=== PATIENT | female | born 1975 | race Caucasian/White ===

== ENCOUNTER → 2016-12-28 | Outpatient (CLI) | payer BC, MEDICARE ==
[2016-12-28 10:04] LABS: CHLORIDE,CL 95 mmol/L (98-110); SODIUM,NA 136 mmol/L (136-146)
--- NOTE | 2017-01-03 01:54 | BHI ---
SERVICE DATE: 01/02/2017 PATIENT #: [id number] #: NOT DICTATED IDENTIFICATION: This is a 41-year-old female, who presents to the clinic today for evaluation. She was seen with her . She is referred to me by Rossana Monae. CHIEF COMPLAINT: Insomnia, anxiety, and depression. CURRENT MEDICATIONS: Zoloft 50 mg a day, trazodone 50 mg at bedtime, Ambien 10 mg at bedtime p.r.n. ALLERGIES: She has no known allergies to medications. HISTORY OF PRESENT ILLNESS: Milvia states "I feel empty." She started the Zoloft about a week ago and she just went up to 50 mg, she has been taking it at night. She has been having a lot of trouble sleeping at night. She is having difficulty falling asleep, frequent awakenings. She is maybe getting 3 hours of sleep at night and she said she has had sleep problems for many years. This is nothing new. She also states that she has had depression her whole life. She denies suicidal or homicidal ideation. Symptoms she significantly endorses are poor appetite, trouble sleeping, no energy, trouble concentrating, sadness, less enjoyment of life, feels like a failure, cries more than usual, loss of interest, disappointed in herself, trouble catching her breath, palpitations, shaking, trembling, cold sweats, numbness or tingling, chest discomfort, thoughts about dying, fear of being embarrassed or humiliated, hand trembles in the presence of others, anxious, worries a lot, muscle tension, aches and pains, restlessness. As stated earlier, she has had depression for a good part of her life. She has also had some issues with alcohol lately and she is dealing with that. She is trying to not use alcohol as a way of coping. She does have a lot of stressors. She had two deaths in her family. She lost her sister, then she lost her mom that was pretty much most of her family, so she has some grieving issues yet plus guilt. states that she has always had a lot of guilt. It is like she does not feel she is entitled to happiness. PAST PSYCHIATRIC HISTORY: She has never been hospitalized. She has never had a suicide attempt. She has had depression for a long time. The only other medication she has tried besides the Zoloft is Prozac and she felt it made her sick although has been thought it helped her improve. She was prescribed that by her primary care. She has never been to see somebody in Behavioral Health before. Her primary care also prescribed the Zoloft. She is looking for a counselor that she can visit with and she tried [facility], but something with her insurance, so I encouraged her to try a few more places. SOCIAL HISTORY: She was born in [place], [place] raised in [place] by her parents. She had 1 sister who has passed. She graduated from high school and she went to college. 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 She has been 21 years. She has a 22-year-old stepson, a 16-year-old daughter, and an 8-year-old son. 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 They came back to [place] in April of 2016 prior to that, they were here in 2011 and 2012. FAMILY HISTORY: Dad had problems with alcohol. Mom and sister were both very depressed. Mom took Zoloft. CHEMICAL USAGE HISTORY: Last time she used alcohol was 2 weeks ago. She admits that she used it as a coping and to help her get to sleep at night and realizes she does not want to use it for that anymore, so she is working on trying to abstain from that. MEDICAL HISTORY: She has had a fair amount of medical issues. She has had Crohn's disease and she was quite young and she has had a colostomy since 2008. She considers herself to be healthy. She did have a gastric bypass in 2009 and lost I think 150 pounds, and has been able to keep it off. REVIEW OF SYSTEMS: CONSTITUTIONAL: Negative. HEAD, EYES, EARS, NOSE, AND THROAT: Negative. CARDIAC: She has had some racing heart beats when she has had a lot of anxiety lately. RESPIRATORY: Negative. GASTROINTESTINAL: Positive. She has Crohn's disease and she also has colostomy. MUSCULOSKELETAL: Negative. ENDOCRINE: Negative. VITAL SIGNS: Blood pressure is 132/92, heart rate 73, respirations 16, temperature is 98.9, weight is 185.6 pounds, height is 64-1/2 inches. MENTAL STATUS EXAM: Her affect appears euthymic. She is very well groomed. Appears her stated age. Her speech is clear and appropriate. I do not see any delusions, psychosis, pressured speech, or tangential speech. She is alert and oriented x3. Recent and remote memory appear intact. Insight and judgment, I think, are fairly good. Eye contact is good. At least 30 minutes of today's session was spent on doing some cognitive restructuring as well as going over some sleep hygiene issues and the use of naltrexone. DIAGNOSES: [place] I: Depression NOS, F32.9; anxiety F41.8. [place] II: No diagnosis. [place] III: She has Crohn's disease with a colostomy. [place] IV: Stressors, a lot of stress is the of her sister and mom, guilt that she puts on herself, not sleeping at night. [place] V: Current Global Assessment of Functioning score 66. TREATMENT PLAN: She is going to continue with the Zoloft, she just went up to the 50 mg yesterday, so we are going to give it a good 10 more days to 2 weeks to see if there is any miles in it. She will continue the trazodone. When it comes to taking the Ambien at night, we talked about when she takes the medication, she has to go right to bed and to try to do something to keep her thoughts on something such as counting or saying her prayers, anything so she does not start turning thoughts over and over and over, so she is going to do that and see if she can improve her sleep a little bit. Previous to this, she has not been going to bed after she is taking the Ambien and that it has caused a little bit more problems because she will do things and that she has no memory of it. She will continue the trazodone 50 mg as well. I am going to have her journal as well. I think she would gain some good insight into journaling and that would be a big plus for her. I have given her a list of resources to look for a counselor for alcohol. I have also given her some naltrexone 50 mg a day and I discussed how that works and things that she can expect from that. I will see her back in 2 weeks if she has any problems whatsoever before that or if she is not able to find a counselor she will call me. /[id number]
== END ==
LOC: MW.CHFP 09:15
PROVIDERS: ATTEND Nurse Practitioner Family
DX: Z00.00 Encounter for general adult medical examination without abnormal findings (principal); R53.83 Other fatigue; Z98.890 Other specified postprocedural states
CPT/HCPCS: 36415; 80053; 82607; 82728; 84443; 85025

== ENCOUNTER 2017-01-03 18:52 | Emergency (ER) | payer BC, MEDICARE ==
--- NOTE | 2017-01-03 19:26 | EDM.PDOC ---
ED HPI EYE COMPLAINT - General Chief Complaint: Eye Problems Stated Complaint: FALL Time Seen by Provider: 01/03/17 18:56 - History of Present Illness INITIAL COMMENTS - FREE TEXT/NARRATIVE: HISTORY AND PHYSICAL: History of present illness: This is a 41-year-old white female who presents status post fall in which she struck her left face sustaining a large hematoma above her left eye there was reported brief loss of consciousness that was 1-2 seconds per observer she denies any nausea vomiting visual disturbance neck pain other trauma or concern there was no dizziness palpitations chest pain or other concerns associated with this Review of systems: As per history of present illness and below otherwise all systems reviewed and negative. Past medical history: As per history of present illness and as reviewed below otherwise noncontributory. Surgical history: As per history of present illness and as reviewed below otherwise noncontributory. Social history: No reported history of drug or alcohol abuse. Family history: As per history of present illness and as reviewed below otherwise noncontributory. Physical exam: HEENT: Patient to have a fairly large approximately 4 cm hematoma above her left eye there's no globe involvement no crepitation no step off anterior chambers clear, normocephalic, pupils reactive, negative for conjunctival pallor or scleral icterus, mucous membranes moist, throat clear, neck supple, nontender, trachea midline. Lungs: Clear to auscultation, breath sounds equal bilaterally, chest nontender. Heart: S1S2, regular, negative for clicks, rubs, or JVD. Abdomen: Soft, nondistended, nontender. Negative for masses or hepatosplenomegaly. Negative for costovertebral tenderness. Pelvis: Stable nontender. Genitourinary: Deferred. Rectal: Deferred. Extremities: Atraumatic, negative for cords or calf pain. Neurovascular unremarkable. Neuro: Awake, alert, oriented. Cranial nerves II through XII unremarkable. Cerebellum unremarkable. Motor and sensory unremarkable throughout. Exam nonfocal. Diagnostics: CT brain/facial bones Therapeutics: None Impression: #1 observation status post fall #2 blunt head trauma with left facial contusion Definitive disposition and diagnosis as appropriate pending reevaluation and review of above. - Related Data Allergies/ADRs: Allergies No Known Allergies Allergy (Verified 05/30/16 13:15) ED ROS GENERAL - Review of Systems Review Of Systems: ROS reveals no pertinent complaints other than HPI. ED EXAM GENERAL W FULL EYE - Physical Exam Exam: See Below (See dictation) Course - Orders/Labs/Meds Orders: Active Orders 24 hr Category Date Time Status Head wo Cont [CT] Stat Exams 01/03/17 19:04 Ordered Max Facial Sinus wo Cont [CT] Stat Exams 01/03/17 19:04 Ordered Departure - Departure Time of Disposition: 19:25 Disposition: Home, Self-Care 01 Condition: good Clinical Impression: Head injury, Contusion, Concussion, Hematoma Forms: ED Department Discharge Additional Instructions: The following information is given to patients seen in the emergency department who are being discharged to home. This information is to outline your options for follow-up care. We provide all patients seen in our emergency department with a follow-up referral. The need for follow-up, as well as the timing and circumstances, are variable depending upon the specifics of your emergency department visit. If you don't have a primary care physician on staff, we will provide you with a referral. We always advise you to contact your personal physician following an emergency department visit to inform them of the circumstance of the visit and for follow-up with them and/or the need for any referrals to a consulting specialist. The emergency department will also refer you to a specialist when appropriate. This referral assures that you have the opportunity for followup care with a specialist. All of these measure are taken in an effort to provide you with optimal care, which includes your followup. Under all circumstances we always encourage you to contact your private physician who remains a resource for coordinating your care. When calling for followup care, please make the office aware that this follow-up is from your recent emergency room visit. If for any reason you are refused follow-up, please contact the [facility] emergency department at and asked to speak to the emergency department charge nurse. Motrin/Tylenol as directed for her primary medical doctor one to 2 days return as needed as discussed - My Orders Last 24 Hours: My Active Orders 01/03/17 19:04 Head wo Cont [CT] Stat Max Facial Sinus wo Cont [CT] Stat - Assessment/Plan Last 24 Hours: My Active Orders 01/03/17 19:04 Head wo Cont [CT] Stat Max Facial Sinus wo Cont [CT] Stat
[2017-01-03 20:34] VITALS: BP 135/87
--- NOTE | 2017-01-04 19:36 | CT ---
EXAM DATE: 01/03/17 PATIENT'S AGE: 41 Patient: SALLY VILLA Facility: [place], [place] Site . Site : 1975 Study: CT Facial [id number]/9/2017 7:50:51 PM Ordering Physician: Abdulaziz Encinas Final Report: INDICATION: Trauma TECHNIQUE: CT maxillofacial without contrast. COMPARISON: None FINDINGS: Facial bones: No fractures or bone lesions. Specifically the nasal bones, temporomandibular joints, maxilla and mandible appear intact. Orbits and globes: Unremarkable. Sinuses: No acute or significant findings. Soft tissues: Left periorbital hematoma. IMPRESSION: Left periorbital hematoma. The adjacent ocular globe is intact. No fractures. Dictated by Marcin Horan MD @ 01/03/2017 8:02:54 PM Dictated by: Marcin Horan MD @ 01/03/2017 20:03:02 (Electronic Signature) Report Signed by Proxy and Original Signed Document filed in the Medical Record. MTDD
--- NOTE | 2017-01-04 19:37 | CT ---
EXAM DATE: 01/03/17 PATIENT'S AGE: 41 Patient: SALLY VILLA Facility: [place], [place] Site . Site : 1975 Study: CT Head [id number]/9/2017 7:56:09 PM Ordering Physician: Abdulaziz Encinas Final Report: INDICATION: Trauma, LOC TECHNIQUE: CT head without contrast. COMPARISON: None FINDINGS: CSF spaces: Within normal limits for age. Brain parenchyma: The pham-white differentiation is normal. No sign of mass, hemorrhage, or midline shift. Skull base and calvarium: The visualized paranasal sinuses and mastoid air cells demonstrate no acute or significant findings. The visualized orbits are grossly unremarkable. No skull fractures. No periorbital hematoma IMPRESSION: Left periorbital hematoma with no associated fractures or evidence of acute intracranial trauma. Dictated by Marcin Horan MD @ 01/03/2017 8:05:58 PM Dictated by: Marcin Horan MD @ 01/03/2017 20:06:09 (Electronic Signature) Report Signed by Proxy and Original Signed Document filed in the Medical Record. [facility]
== END 2017-01-03 20:32 | disposition home or self-care (01) ==
LOC: MW.ED 18:52
DX: S06.0X1A Concussion with loss of consciousness of 30 minutes or less, initial encounter (principal); S00.83XA Contusion of other part of head, initial encounter; W19.XXXA Unspecified fall, initial encounter
CPT/HCPCS: 70450; 70450-26; 70486; 70486-26; 99284; 99284-25

== ENCOUNTER 2017-01-19 17:09 | Emergency (ER) | payer BC, MEDICARE ==
--- NOTE | 2017-01-19 17:31 | EDM.PDOC ---
ED HPI GENERAL MEDICAL PROBLEM - General Chief Complaint: Drug or Alcohol Abuse Stated Complaint: DETOX Time Seen by Provider: 01/19/17 17:31 Source of Information: Reports: Patient, Family History Limitations: Reports: No limitations - History of Present Illness INITIAL COMMENTS - FREE TEXT/NARRATIVE: HISTORY AND PHYSICAL: History of present illness: Patient is a 41-year-old female who presents to the emergency department today with her who is wanting her to be detoxed this weekend. He has been in contact with them and they'll and has been told that he can have her committed for alcohol detox and therapy and he is wanting her to be here until Saturday until he can start that process. He states that she has been drinking all day today. She fell a couple of weeks ago due to intoxication and still has pretty significant bruising and hematomas to the face. He states she's been drinking very heavily for the last 6 days and has admitted to him that she is taking her Ambien and trazodone with her heavy drinking and hopes to sleep and not wake up. He is very frustrated with the patient. Apparently she started drinking much heavier about a year ago after she became addicted to opiates and then stopped taking those. Over the last few months the drinking has been he is to follow sleep and is happening all day will she is awake. The patient does admit that she wants to stop drinking anytime she goes a couple of hours without drinking she has "pain everywhere" and she just does not want to have the pain. Review of systems: As per history of present illness and below otherwise all systems reviewed and negative. Past medical history: As per history of present illness and as reviewed below otherwise noncontributory. Surgical history: As per history of present illness and as reviewed below otherwise noncontributory. Social history: No reported history of drug or alcohol abuse. Family history: As per history of present illness and as reviewed below otherwise noncontributory. Physical exam: HEENT: Patient has significant hematoma to the left religious and ecchymosis around the eye and all this area. She has some conjunctival hemorrhage in the left eye but pupils are equal and reactive. Normal range of motion of the neck without pain. Lungs: Clear to auscultation, no respiratory distress. Heart: Regular rate and rhythm. Abdomen: Soft, nondistended, nontender. Pelvis: Stable nontender. Genitourinary: Deferred. Rectal: Deferred. Extremities: No difficulties with range of motion. No evidence of trauma. Neuro: Awake, alert. Intoxicated. No focal deficits. Diagnostics: CBC, CMP, UA, urine drug screen, hCG, TSH, blood alcohol Impression: #1: Suicidal ideation #2: Acute alcohol intoxication #3: Alcohol abuse Plan: I spoke with Dr. Andrews, the psychiatrist production team advisor at [facility]. He stated he would accept the patient for transfer but he wanted her to go through the ED. I then spoke with Dr. Mckeon who accepted care through the ED. We ordered labs and will fax over all the results. I informed the patient and her of the plan and put the patient on a hold. Definitive disposition and diagnosis as appropriate pending reevaluation and review of above. Generalized Pain Score (Numeric/FACES): 0 - Related Data Allergies Allergy/AdvReac Type Severity Reaction Status Date / Time No Known Allergies Allergy Verified 01/19/17 17:21 Home Meds: Home Meds Sertraline [Zoloft] 1 tab PO DAILY 01/03/17 [History] Zolpidem [Ambien] 1 tab PO BEDTIME 01/03/17 [History] traMADol [Ultram] 1 tab PO DAILY 01/03/17 [History] traZODone 1 tab PO BEDTIME 01/03/17 [History] Past Medical History - Past Health History Medical/Surgical History: Denies Medical/Surgical History Other Gastrointestinal History: Crohn's dse [facility] History: Reports: Psychiatric History: Reports: Depression - Infectious Disease History Infectious Disease History: Reports: Chicken pox - Past Surgical History Other GI Surgeries/Procedures: Colostomy; Gastric bypass; Hernai repair x 2 Female Surgical History: Reports: section Other Female Surgeries/Procedures: x 2 Social & Family History - Family History Family Medical History: Noncontributory - Tobacco Use Smoking Status *Q: Never Smoker Second Hand Smoke Exposure: No - Caffeine Use Caffeine Use: Reports: Soda Caffeine Use Comment: 8drinks/day - Alcohol Use Days Per Week of Alcohol Use: 7 Number of Drinks Per Day: 5 Total Drinks Per Week: 35 - Recreational Drug Use Recreational Drug Use: No ED ROS GENERAL - Review of Systems Review Of Systems: ROS reveals no pertinent complaints other than HPI. ED EXAM, GENERAL - Physical Exam Exam: See Below (See history of present illness) Course - Vital Signs Last Recorded V/S: Last Vital Signs Temp 36.3 C 01/19/17 17:23 Pulse 123 H 01/19/17 17:23 Resp 18 01/19/17 17:23 BP 145/90 H 01/19/17 17:23 Pulse Ox 94 L 01/19/17 17:23 - Orders/Labs/Meds Orders: Active Orders 24 hr Category Date Time Status CBC WITH AUTO DIFF [HEME] Stat Lab 01/19/17 18:10 Ordered COMPREHENSIVE METABOLIC PN,CMP [CHEM] Stat Lab 01/19/17 18:10 Ordered DRUG SCREEN, URINE [URCHEM] Stat Lab 01/19/17 18:10 Uncollected ETHANOL BLOOD MEDICAL [CHEM] Stat Lab 01/19/17 18:10 Ordered HCG QUALITATIVE,URINE [URCHEM] Stat Lab 01/19/17 18:20 Ordered MAGNESIUM [CHEM] Stat Lab 01/19/17 18:11 Ordered TSH [CHEM] Stat Lab 01/19/17 18:10 Ordered Departure - Departure Time of Disposition: 18:42 Disposition: DC/Tfer to Acute Hospital 02 Condition: good Clinical Impression: Suicidal intent, Alcohol abuse Acute alcohol intoxication Qualifiers: Complication of substance-induced condition: uncomplicated Qualified Code(s): F10.120 - Alcohol abuse with intoxication, uncomplicated Forms: ED Department Discharge - My Orders Last 24 Hours: My Active Orders 01/19/17 18:10 CBC WITH AUTO DIFF [HEME] Stat COMPREHENSIVE METABOLIC PN,CMP [CHEM] Stat DRUG SCREEN, URINE [URCHEM] Stat ETHANOL BLOOD MEDICAL [CHEM] Stat TSH [CHEM] Stat 01/19/17 18:11 MAGNESIUM [CHEM] Stat - Assessment/Plan Last 24 Hours: My Active Orders 01/19/17 18:10 CBC WITH AUTO DIFF [HEME] Stat COMPREHENSIVE METABOLIC PN,CMP [CHEM] Stat DRUG SCREEN, URINE [URCHEM] Stat ETHANOL BLOOD MEDICAL [CHEM] Stat TSH [CHEM] Stat 01/19/17 18:11 MAGNESIUM [CHEM] Stat
[2017-01-19 18:50] LABS: CHLORIDE,CL 98 mmol/L (98-110); SODIUM,NA 137 mmol/L (136-146)
[2017-01-19 19:13] VITALS: BP 151/101
== END 2017-01-19 18:40 ==
LOC: MW.ED 17:09
DX: F10.120 Alcohol abuse with intoxication, uncomplicated (principal); R45.851 Suicidal ideations; Z98.84 Bariatric surgery status; Z98.890 Other specified postprocedural states; Z93.3 Colostomy status; Z79.899 Other long term (current) drug therapy; Y90.8 Blood alcohol level of 240 mg/100 ml or more
CPT/HCPCS: 36415; 80053; 80305; 81025; 83735; 84443; 85025; 99284; G0480

== ENCOUNTER 2017-02-05 20:44 | Emergency (ER) | payer BC, MEDICARE ==
[2017-02-05] MEDS ORDERED: Sodium Chloride 0.9% 10 ML Syringe FLUSH PRN (21:05)
[2017-02-05] MEDS ORDERED: Bacitracin Oint 1 GM U/D Packet TOP ONE (21:05)
[2017-02-05] MEDS ORDERED: Sodium Chloride 0.9% 1,000 ML IV ONE (21:05)
[2017-02-05] MEDS ORDERED: Sodium Chloride 0.9% 2.5 ML Syringe FLUSH PRN (21:05)
[2017-02-05] MEDS ORDERED: Diphtheria,Pertussis(Acell),Tetanus Vaccine 0.5 ML Syringe IM ONE (21:05)
--- NOTE | 2017-02-05 21:08 | EDM.PDOC ---
ED HPI GENERAL MEDICAL PROBLEM - General Chief Complaint: Drug or Alcohol Abuse Stated Complaint: INTOXICATED Time Seen by Provider: 02/05/17 20:53 - History of Present Illness INITIAL COMMENTS - FREE TEXT/NARRATIVE: HISTORY AND PHYSICAL: History of present illness: The patient is a 41-year-old female with a long-standing history of drug and alcohol dependency depression and anxiety who presents with her intoxicated and expressing suicidal ideation. The patient was seen here in our emergency department on January 19 for similar and was transferred to [facility] in [place] and was treated there and still her CLOVER and then she opted to leave. According to the they were unable to keep her even though she still was not improving. Since her discharge from [facility] she has resumed alcohol consumption heavily every single day and has continued to exhibit suicidal ideation. The states that she sent him a picture of one of their guns on a windowsill with her in the picture just recently and implied that she was planning on using it although she denies that she did that to me and tells the that she "hates him". The patient has had frequent falls and has multiple areas of bruising per the but has not passed out or black out and he is not sure she has had her head. She didn't hit into some glass recently and has some superficial cuts on her left side that he wants me to evaluate and the patient is unsure of her last tetanus shot. The patient currently is taking Ambien trazodone Zoloft and Celexa but according to the she is not compliant with any of those medications. She told her that she was going to follow up with [facility] and she has not done so. The is frustrated and states that they get her help and that he feels unsafe with her in the home with her current behavior and seeks help. The patient states that she last drank approximately 6 PM and drinks hard liquor and she currently feels some nausea but no other complaints of discomfort. 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 Review of systems: As per history of present illness and below otherwise all systems reviewed and negative. Past medical history: As per history of present illness and as reviewed below otherwise noncontributory. Surgical history: As per history of present illness and as reviewed below otherwise noncontributory. Social history: No reported history of drug or alcohol abuse. Family history: As per history of present illness and as reviewed below otherwise noncontributory. Physical exam: General: Well-developed well-nourished female who is clearly intoxicated and prefers to keep her eyes closed and has a slight slurring of her speech. Vital signs been noted by me. HEENT: Atraumatic, normocephalic, pupils reactive, sclerae slightly injected negative for conjunctival pallor or scleral icterus, mucous membranes tacky, throat clear, neck supple, nontender, trachea midline. There are no palpable deformities of the scalp and there are no midline step-offs tenderness or defects of the cervical spine Lungs: Clear to auscultation, breath sounds equal bilaterally, chest nontender. Heart: S1S2, regular, negative for clicks, rubs, or JVD. Abdomen: Soft, nondistended, nontender. Colostomy and bag are seen mid abdomen Negative for masses or hepatosplenomegaly. Negative for costovertebral tenderness. Pelvis: Stable nontender. Genitourinary: Deferred. Rectal: Deferred. Extremities: All extremities have full range of motion without defects or deficits but there is scattered ecchymosis mostly on the lower and upper extremities of hearing ages but there are no palpable bony deformities or tenderness appreciated. There are some superficial linear laceration seen at the left inguinal area and a few on the left side in the soft tissue but there is no depth and there is no active bleeding or tenderness. The legs are negative for cords or calf pain. Neurovascular unremarkable. Neuro: Awake, alert, oriented. Motor and sensory unremarkable throughout. Exam nonfocal. Back: There are no midline step-offs or defects of the thoracic or lumbar spine and no soft tissue ecchymosis swelling tenderness or bruising is appreciated Diagnostics: EKG CT scan of the head CBC CMP INR aspirin and Tylenol levels alcohol level UA UDS UCG magnesium level Therapeutics: IV fluids thiamine Zofran Ativan as needed; magnesium parole or probation officer at bedside states that the patient did make to him that the world would be better off without her although she would not admit that to me or the . 2224: Case was discussed with Dr. Andrews the psychiatrist at [facility] who states that the patient should come to the ER by a medical admission due to her alcohol level and then she can be transitioned to a psych admission. 223: Case was discussed with the ER physician Dr. Cat who accepts the patient for transfer. I discussed all testing results with the patient and family in the room and will arrange for transportation. And CLOVER has been filled out Impression: Acute alcoholic intoxication/history of alcohol abuse with suicidal ideation Definitive disposition and diagnosis as appropriate pending reevaluation and review of above. - Related Data Allergies Allergy/AdvReac Type Severity Reaction Status Date / Time No Known Allergies Allergy Verified 02/05/17 20:58 Home Meds: Home Meds Sertraline [Zoloft] 1 tab PO DAILY 01/03/17 [History] Zolpidem [Ambien] 1 tab PO BEDTIME 01/03/17 [History] traZODone 1 tab PO BEDTIME 01/03/17 [History] Citalopram Hydrobromide [Celexa] 1 tab PO DAILY 02/05/17 [History] Past Medical History - Past Health History Medical/Surgical History: Denies Medical/Surgical History HEENT History: Reports: None Cardiovascular History: Reports: None Respiratory History: Reports: None Gastrointestinal History: Reports: Other (see below) Other Gastrointestinal History: Crohn's dse Genitourinary History: Reports: None AROMATHERAPIST History: Reports: Musculoskeletal History: Reports: None Neurological History: Reports: None Psychiatric History: Reports: Depression Endocrine/Metabolic History: Reports: None Hematologic History: Reports: None Immunologic History: Reports: None Oncologic (Cancer) History: Reports: None Dermatologic History: Reports: None - Infectious Disease History Infectious Disease History: Reports: Chicken pox - Past Surgical History Other GI Surgeries/Procedures: Colostomy; Gastric bypass; Hernai repair x 2 Female Surgical History: Reports: section Other Female Surgeries/Procedures: x 2 Social & Family History - Family History Family Medical History: Noncontributory - Tobacco Use Smoking Status *Q: Never Smoker Second Hand Smoke Exposure: No - Caffeine Use Caffeine Use: Reports: Soda Caffeine Use Comment: 8drinks/day - Alcohol Use Days Per Week of Alcohol Use: 7 Number of Drinks Per Day: 5 Total Drinks Per Week: 35 - Recreational Drug Use Recreational Drug Use: No ED ROS GENERAL - Review of Systems Review Of Systems: ROS reveals no pertinent complaints other than HPI. ED EXAM, GENERAL - Physical Exam Exam: See Below (See dictation) Course - Vital Signs Last Recorded V/S: Last Vital Signs Temp 36.6 C 02/05/17 21:01 Pulse 125 H 02/05/17 22:29 Resp 18 02/05/17 22:29 BP 138/80 02/05/17 22:29 Pulse Ox 96 02/05/17 22:29 - Orders/Labs/Meds Orders: Active Orders 24 hr Category Date Time Status Blood Glucose Check, Bedside [RC] ONETIME Care 02/05/17 21:03 Active Cardiac Monitoring [RC] . DIRECTED Care 02/05/17 21:03 Active Communication Order [RC] STAT Care 02/05/17 21:05 Active EKG Documentation Completion [RC] STAT Care 02/05/17 21:03 Active Oxygen Therapy, ED [RC] ASDIRECTED Care 02/05/17 21:03 Active Pulse Oximetry [RC] ASDIRECTED Care 02/05/17 21:03 Active Vaccines to be Administered [RC] PER UNIT ROUTINE Care 02/05/17 21:05 Active Head wo Cont [CT] Stat Exams 02/05/17 21:04 Taken TSH [CHEM] Stat Lab 02/05/17 21:22 Received Magnesium Sulfate/Water [Magnesium Sulfate 2 GM in Med 02/05/17 22:35 Ordered Water 50 ML] 2 gm Premix Bag 1 bag IV ONETIME Sodium Chloride 0.9% [Saline Flush] Med 02/05/17 21:05 Active 10 ml FLUSH ASDIRECTED PRN Sodium Chloride 0.9% [Saline Flush] Med 02/05/17 21:05 Active 2.5 ml FLUSH ASDIRECTED PRN Saline Lock Insert [OM.PC] Stat Oth 02/05/17 21:03 Ordered Medication Orders Sodium Chloride (Saline Flush) 10 ml FLUSH ASDIRECTED PRN PRN Reason: Keep Vein Open Sodium Chloride (Saline Flush) 2.5 ml FLUSH ASDIRECTED PRN PRN Reason: Keep Vein Open Labs: Laboratory Tests 02/05/17 02/05/17 02/05/17 Range/Units 21:22 21:22 21:22 WBC 13.63 H (4.0-11.0) K/uL RBC 4.88 (4.30-5.90) M/uL Hgb 14.7 (12.0-16.0) g/dL Hct 44.0 (36.0-46.0) % MCV 90.2 (80.0-98.0) fL MCH 30.1 (27.0-32.0) pg MCHC 33.4 (31.0-37.0) g/dL RDW Std Deviation 48.7 (28.0-62.0) fl RDW Coeff of Ankit 15 (11.0-15.0) % Plt Count 296 (150-400) K/uL MPV 9.00 (7.40-12.00) fL Neut % (Auto) 92.1 H (48.0-80.0) % Lymph % (Auto) 4.0 L (16.0-40.0) % [place] % (Auto) 3.5 (0.0-15.0) % Eos % (Auto) 0.0 (0.0-7.0) % Baso % (Auto) 0.4 (0.0-1.5) % Neut # (Auto) 12.6 H (1.4-5.7) K/uL Lymph # (Auto) 0.5 L (0.6-2.4) K/uL [place] # (Auto) 0.5 (0.0-0.8) K/uL Eos # (Auto) 0.0 (0.0-0.7) K/uL Baso # (Auto) 0.1 (0.0-0.1) K/uL Nucleated RBC % 0.0 /100WBC Nucleated RBCs # 0 K/uL INR 1.02 (0.86-1.11) Sodium 135 L (136-146) mmol/L Potassium 3.6 (3.5-5.1) mmol/L Chloride 94 L (98-110) mmol/L Carbon Dioxide 16 L (21-31) mmol/L BUN 9 (6.0-23.0) mg/dL Creatinine 0.7 (0.6-1.5) mg/dL Est Cr Clr Drug Dosing 92.25 mL/min Estimated GFR (MDRD) > 60.0 ml/min Glucose 99 (60-110) mg/dL POC Glucose (60-110) mg/dL Calcium 8.2 L (8.8-10.8) mg/dL Magnesium 1.4 L (1.5-2.3) mEq/L Total Bilirubin 0.8 (0.1-1.5) mg/dL AST 121 H (5-40) IU/L ALT 45 (8-54) IU/L Alkaline Phosphatase 129 (40-150) Total Protein 8.0 (6.0-8.0) g/dL Albumin 4.1 (3.5-5.0) g/dL Globulin 3.9 H (2.0-3.5) g/dL Albumin/Globulin Ratio 1.05 Urine Color Urine Appearance Urine pH (5.0-8.0) Ur Specific [place] (1.001-1.035) Urine Protein (NEGATIVE) mg/dL Urine Glucose (UA) (NEGATIVE) mg/dL Urine Ketones (NEGATIVE) mg/dL Urine Occult Blood (NEGATIVE) Urine Nitrite (NEGATIVE) Urine Bilirubin (NEGATIVE) Urine Urobilinogen (<2.0) EU/dL Ur Leukocyte Esterase (NEGATIVE) Urine RBC (0-2/HPF) Urine WBC (0-5/HPF) Ur Epithelial Cells (NONE-FEW) Amorphous Sediment (NEGATIVE) Urine Bacteria (NEGATIVE) Urine HCG, Qual (NEGATIVE) Salicylates < 5.0 (0-20) mg/dL Urine Opiates Screen (NEGATIVE) Ur Oxycodone Screen (NEGATIVE) Urine Methadone Screen (NEGATIVE) Acetaminophen < 3.0 ug/mL Ur Barbiturates Screen (NEGATIVE) Ur Phencyclidine Scrn (NEGATIVE) Ur Amphetamine Screen (NEGATIVE) U Methamphetamines Scrn (NEGATIVE) U Benzodiazepines Scrn (NEGATIVE) U Cocaine Metab Screen (NEGATIVE) U Marijuana (THC) Screen (NEGATIVE) Ethyl Alcohol 402.3 mg/dL 02/05/17 02/05/17 02/05/17 Range/Units 21:53 21:53 21:53 WBC (4.0-11.0) K/uL RBC (4.30-5.90) M/uL Hgb (12.0-16.0) g/dL Hct (36.0-46.0) % MCV (80.0-98.0) fL MCH (27.0-32.0) pg MCHC (31.0-37.0) g/dL RDW Std Deviation (28.0-62.0) fl RDW Coeff of Ankit (11.0-15.0) % Plt Count (150-400) K/uL MPV (7.40-12.00) fL Neut % (Auto) (48.0-80.0) % Lymph % (Auto) (16.0-40.0) % [place] % (Auto) (0.0-15.0) % Eos % (Auto) (0.0-7.0) % Baso % (Auto) (0.0-1.5) % Neut # (Auto) (1.4-5.7) K/uL Lymph # (Auto) (0.6-2.4) K/uL [place] # (Auto) (0.0-0.8) K/uL Eos # (Auto) (0.0-0.7) K/uL Baso # (Auto) (0.0-0.1) K/uL Nucleated RBC % /100WBC Nucleated RBCs # K/uL INR (0.86-1.11) Sodium (136-146) mmol/L Potassium (3.5-5.1) mmol/L Chloride (98-110) mmol/L Carbon Dioxide (21-31) mmol/L BUN (6.0-23.0) mg/dL Creatinine (0.6-1.5) mg/dL Est Cr Clr Drug Dosing mL/min Estimated GFR (MDRD) ml/min Glucose (60-110) mg/dL POC Glucose (60-110) mg/dL Calcium (8.8-10.8) mg/dL Magnesium (1.5-2.3) mEq/L Total Bilirubin (0.1-1.5) mg/dL AST (5-40) IU/L ALT (8-54) IU/L Alkaline Phosphatase (40-150) Total Protein (6.0-8.0) g/dL Albumin (3.5-5.0) g/dL Globulin (2.0-3.5) g/dL Albumin/Globulin Ratio Urine Color YELLOW Urine Appearance CLEAR Urine pH 5.5 (5.0-8.0) Ur Specific [place] >= 1.030 (1.001-1.035) Urine Protein 100 (NEGATIVE) mg/dL Urine Glucose (UA) NEGATIVE (NEGATIVE) mg/dL Urine Ketones 40 H (NEGATIVE) mg/dL Urine Occult Blood LARGE H (NEGATIVE) Urine Nitrite NEGATIVE (NEGATIVE) Urine Bilirubin NEGATIVE (NEGATIVE) Urine Urobilinogen 0.2 (<2.0) EU/dL Ur Leukocyte Esterase NEGATIVE (NEGATIVE) Urine RBC 0-2 (0-2/HPF) Urine WBC 0-2 (0-5/HPF) Ur Epithelial Cells RARE (NONE-FEW) Amorphous Sediment LIGHT (NEGATIVE) Urine Bacteria RARE (NEGATIVE) Urine HCG, Qual NEGATIVE (NEGATIVE) Salicylates (0-20) mg/dL Urine Opiates Screen NEGATIVE (NEGATIVE) Ur Oxycodone Screen NEGATIVE (NEGATIVE) Urine Methadone Screen NEGATIVE (NEGATIVE) Acetaminophen ug/mL Ur Barbiturates Screen NEGATIVE (NEGATIVE) Ur Phencyclidine Scrn NEGATIVE (NEGATIVE) Ur Amphetamine Screen NEGATIVE (NEGATIVE) U Methamphetamines Scrn NEGATIVE (NEGATIVE) U Benzodiazepines Scrn POSITIVE (NEGATIVE) U Cocaine Metab Screen NEGATIVE (NEGATIVE) U Marijuana (THC) Screen NEGATIVE (NEGATIVE) Ethyl Alcohol mg/dL 02/05/17 Range/Units 22:32 WBC (4.0-11.0) K/uL RBC (4.30-5.90) M/uL Hgb (12.0-16.0) g/dL Hct (36.0-46.0) % MCV (80.0-98.0) fL MCH (27.0-32.0) pg MCHC (31.0-37.0) g/dL RDW Std Deviation (28.0-62.0) fl RDW Coeff of Ankit (11.0-15.0) % Plt Count (150-400) K/uL MPV (7.40-12.00) fL Neut % (Auto) (48.0-80.0) % Lymph % (Auto) (16.0-40.0) % [place] % (Auto) (0.0-15.0) % Eos % (Auto) (0.0-7.0) % Baso % (Auto) (0.0-1.5) % Neut # (Auto) (1.4-5.7) K/uL Lymph # (Auto) (0.6-2.4) K/uL [place] # (Auto) (0.0-0.8) K/uL Eos # (Auto) (0.0-0.7) K/uL Baso # (Auto) (0.0-0.1) K/uL Nucleated RBC % /100WBC Nucleated RBCs # K/uL INR (0.86-1.11) Sodium (136-146) mmol/L Potassium (3.5-5.1) mmol/L Chloride (98-110) mmol/L Carbon Dioxide (21-31) mmol/L BUN (6.0-23.0) mg/dL Creatinine (0.6-1.5) mg/dL Est Cr Clr Drug Dosing mL/min Estimated GFR (MDRD) ml/min Glucose (60-110) mg/dL POC Glucose 101 (60-110) mg/dL Calcium (8.8-10.8) mg/dL Magnesium (1.5-2.3) mEq/L Total Bilirubin (0.1-1.5) mg/dL AST (5-40) IU/L ALT (8-54) IU/L Alkaline Phosphatase (40-150) Total Protein (6.0-8.0) g/dL Albumin (3.5-5.0) g/dL Globulin (2.0-3.5) g/dL Albumin/Globulin Ratio Urine Color Urine Appearance Urine pH (5.0-8.0) Ur Specific [place] (1.001-1.035) Urine Protein (NEGATIVE) mg/dL Urine Glucose (UA) (NEGATIVE) mg/dL Urine Ketones (NEGATIVE) mg/dL Urine Occult Blood (NEGATIVE) Urine Nitrite (NEGATIVE) Urine Bilirubin (NEGATIVE) Urine Urobilinogen (<2.0) EU/dL Ur Leukocyte Esterase (NEGATIVE) Urine RBC (0-2/HPF) Urine WBC (0-5/HPF) Ur Epithelial Cells (NONE-FEW) Amorphous Sediment (NEGATIVE) Urine Bacteria (NEGATIVE) Urine HCG, Qual (NEGATIVE) Salicylates (0-20) mg/dL Urine Opiates Screen (NEGATIVE) Ur Oxycodone Screen (NEGATIVE) Urine Methadone Screen (NEGATIVE) Acetaminophen ug/mL Ur Barbiturates Screen (NEGATIVE) Ur Phencyclidine Scrn (NEGATIVE) Ur Amphetamine Screen (NEGATIVE) U Methamphetamines Scrn (NEGATIVE) U Benzodiazepines Scrn (NEGATIVE) U Cocaine Metab Screen (NEGATIVE) U Marijuana (THC) Screen (NEGATIVE) Ethyl Alcohol mg/dL Meds: Medications Generic Name Dose Route Start Last Admin Trade Name Freq PRN Reason Stop Dose Admin Sodium Chloride 10 ml 02/05/17 21:05 Saline Flush FLUSH ASDIRECTED PRN Keep Vein Open Sodium Chloride 2.5 ml 02/05/17 21:05 Saline Flush FLUSH ASDIRECTED PRN Keep Vein Open Discontinued Medications Generic Name Dose Route Start Last Admin Trade Name Radha PRN Reason Stop Dose Admin Bacitracin 1 dose 02/05/17 21:05 02/05/17 21:55 Bacitracin Oint 1 Gm TOP 02/05/17 21:06 1 dose ONETIME ONE Administration Diphtheria/Tetanus/Acell Pertussis 0.5 ml 02/05/17 21:05 02/05/17 21:56 Adacel IM 02/05/17 21:06 0.5 ml .ONCE ONE Administration Sodium Chloride 1,000 mls @ 999 mls/hr 02/05/17 21:05 02/05/17 21:52 Normal Saline IV 02/05/17 22:05 999 mls/hr STAT ONE Administration Thiamine HCl 100 mg/ Sodium 101 mls @ 9,999 mls/hr 02/05/17 21:14 02/05/17 22 :03 Chloride IV 02/05/17 21:15 9,999 mls/hr ONETIME ONE Administration Ondansetron HCl 4 mg 02/05/17 21:11 02/05/17 21:53 Zofran IVPUSH 02/05/17 21:12 4 mg ONETIME ONE Administration Departure - Departure Time of Disposition: 22:38 Disposition: DC/Tfer to Acute Hospital 02 Condition: fair Clinical Impression: Suicidal ideation, Alcohol abuse Alcohol intoxication Qualifiers: Complication of substance-induced condition: uncomplicated Qualified Code(s): F10.120 - Alcohol abuse with intoxication, uncomplicated Forms: ED Department Discharge - My Orders Last 24 Hours: My Active Orders 02/05/17 21:03 Blood Glucose Check, Bedside [RC] ONETIME Cardiac Monitoring [RC] . DIRECTED EKG Documentation Completion [RC] STAT Oxygen Therapy, ED [RC] ASDIRECTED Pulse Oximetry [RC] ASDIRECTED Saline Lock Insert [OM.PC] Stat 02/05/17 21:04 Head wo Cont [CT] Stat 02/05/17 21:05 Communication Order [RC] STAT Vaccines to be Administered [RC] PER UNIT ROUTINE Sodium Chloride 0.9% [Saline Flush] 10 ml FLUSH ASDIRECTED PRN Sodium Chloride 0.9% [Saline Flush] 2.5 ml FLUSH ASDIRECTED PRN 02/05/17 21:22 TSH [CHEM] Stat 02/05/17 22:35 Magnesium Sulfate/Water [Magnesium Sulfate 2 GM in Water 50 ML] 2 gm Premix Bag 1 bag IV ONETIME - Assessment/Plan Last 24 Hours: My Active Orders 02/05/17 21:03 Blood Glucose Check, Bedside [RC] ONETIME Cardiac Monitoring [RC] . DIRECTED EKG Documentation Completion [RC] STAT Oxygen Therapy, ED [RC] ASDIRECTED Pulse Oximetry [RC] ASDIRECTED Saline Lock Insert [OM.PC] Stat 02/05/17 21:04 Head wo Cont [CT] Stat 02/05/17 21:05 Communication Order [RC] STAT Vaccines to be Administered [RC] PER UNIT ROUTINE Sodium Chloride 0.9% [Saline Flush] 10 ml FLUSH ASDIRECTED PRN Sodium Chloride 0.9% [Saline Flush] 2.5 ml FLUSH ASDIRECTED PRN 02/05/17 21:22 TSH [CHEM] Stat 02/05/17 22:35 Magnesium Sulfate/Water [Magnesium Sulfate 2 GM in Water 50 ML] 2 gm Premix Bag 1 bag IV ONETIME
[2017-02-05] MEDS ORDERED: Ondansetron 4 MG/2 ML SDV IVPUSH ONE (21:11)
[2017-02-05] MEDS ORDERED: Thiamine 100 MG in Sodium Chloride 0.9% 100 ML IV ONE (21:14)
[2017-02-05 22:00] LABS: ACETAMINOPHEN < 3.0 ug/mL; CHLORIDE,CL 94 mmol/L (98-110); SODIUM,NA 135 mmol/L (136-146)
[2017-02-05] MEDS ORDERED: Magnesium Sulfate/Water 2 GM in Premix Bag 1 BAG IV ONE (22:35)
[2017-02-05 23:27] VITALS: BP 133/72
--- NOTE | 2017-02-06 10:29 | CT ---
EXAM DATE: 02/05/17 PATIENT'S AGE: 41 Patient: SALLY VILLA Facility: [place], [place] Site . Site : [id number] Study: CT Head WO CONT [id number]/11/2017 9:46:39 PM Ordering Physician: Lázaro Nair Final Report: HISTORY: Pain, alcohol intoxication. TECHNIQUE: The head was scanned in the axial plane at 3 mm intervals without IV contrast. Reconstructed bone windows obtained as well as sagittal reconstructions. COMPARISON: 03 January 2017. FINDINGS: The visualized paranasal sinuses and mastoid air cells are well aerated. The calvarium is intact. There is decrease of the left supraorbital soft tissue hematoma. The ventricles and sulci are normal size, shape and position. No intra-axial mass, edema or midline shift is identified. No extra-axial fluid collections are seen. Pratt-white differentiation is preserved. IMPRESSION: 1. Decreasing left supraorbital soft tissue scalp hematoma. 2. No acute intracranial pathology or bleed. Dictated by Glory Aguilar MD @ 02/05/2017 9:50:09 PM Dictated by: Glory Aguilar MD @ 02/05/2017 21:50:14 (Electronic Signature) Report Signed by Proxy and Original Signed Document filed in the Medical Record. MTDD
== END 2017-02-05 23:24 ==
LOC: MW.ED 20:44
DX: R45.851 Suicidal ideations (principal); F10.229 Alcohol dependence with intoxication, unspecified; F19.229 Other psychoactive substance dependence with intoxication, unspecified; F32.9 Major depressive disorder, single episode, unspecified; K50.90 Crohn's disease, unspecified, without complications; Z93.3 Colostomy status; Z79.899 Other long term (current) drug therapy
CPT/HCPCS: 36415; 70450; 80053; 80305; 81001; 81025; 82962; 83735; 84443; 85025; 85610; 90471; 90715; 93005; 96361; 96365; 96367; 96375; 99285; G0480; J2405; J3411; J3475; J7030; J7040

== ENCOUNTER 2017-02-19 14:29 | Observation (INO) | payer BC, MEDICARE ==
--- NOTE | 2017-02-19 15:40 | EDM.PDOC ---
ED HPI GI/ABDOMINAL - General Chief Complaint: Abdominal Pain Stated Complaint: SICK Time Seen by Provider: 02/19/17 14:30 Source of Information: Reports: Patient History Limitations: Reports: No limitations - History of Present Illness INITIAL COMMENTS - FREE TEXT/NARRATIVE: Presents to the ER reporting that she had a revision of a colostomy last Saturday in [place] under the services of Dr. Davis. She had previously had a colostomy for colon resection due to Crohn's disease. She developed a hernia around that which had become painful and thus had the revision. The patient states that she was febrile when she was discharged from the hospital and had been almost her entire stay. She states that a CT of the abdomen pelvis , x-rays and blood cultures were done while she was an inpatient but the etiology of her fever was never found. Since her discharge her lower legs have developed significant pitting edema from the knees down. In addition her abdomen has become edematous, pink and firm around the new colostomy site. The old site incision is clean and dry and ursula intact. She also has a second hernia site midline and inferior to the him... which is also clean and dry but questionable about one of the ursula coming out. - Related Data Allergies/ADRs: Allergies Allergy/AdvReac Type Severity Reaction Status Date / Time No Known Allergies Allergy Verified 02/19/17 14:49 Home Meds: Home Meds Amoxicillin 250 mg PO BID 02/19/17 [History] Hydrocodone/Acetaminophen [[place] 10-325 Tablet] 1 tab PO Q6HR PRN 02/19/17 [ History] Past Medical History - Past Health History Medical/Surgical History: Denies Medical/Surgical History HEENT History: Reports: None Cardiovascular History: Reports: None Respiratory History: Reports: None Gastrointestinal History: Reports: Other (see below) Other Gastrointestinal History: Crohn's dse Genitourinary History: Reports: None 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 History: Reports: None Neurological History: Reports: None Psychiatric History: Reports: Depression Endocrine/Metabolic History: Reports: None Hematologic History: Reports: None Immunologic History: Reports: None Oncologic (Cancer) History: Reports: None Dermatologic History: Reports: None - Infectious Disease History Infectious Disease History: Reports: Chicken pox - Past Surgical History Head Surgeries/Procedures: Reports: None Other GI Surgeries/Procedures: Colostomy; Gastric bypass; Hernai repair x 2 Female Surgical History: Reports: section Other Female Surgeries/Procedures: x 2 Social & Family History - Family History Family Medical History: Noncontributory - Tobacco Use Smoking Status *Q: Never Smoker Second Hand Smoke Exposure: No - Caffeine Use Caffeine Use: Reports: None Caffeine Use Comment: 8drinks/day - Alcohol Use Days Per Week of Alcohol Use: 7 Number of Drinks Per Day: 5 Total Drinks Per Week: 35 - Recreational Drug Use Recreational Drug Use: No ED ROS GENERAL - Review of Systems Review Of Systems: ROS reveals no pertinent complaints other than HPI. Constitutional: Reports: fever ED EXAM, GI/ABD - Physical Exam Exam: See Below Exam Limited By: No limitations General Appearance: alert, no apparent distress Ears: normal external exam Nose: normal inspection Throat/Mouth: Normal inspection Head: atraumatic, normocephalic Neck: normal inspection Respiratory/Chest: no respiratory distress, lungs clear, normal breath sounds Cardiovascular: normal peripheral pulses, regular rate, rhythm, no murmur, other (2+ pitting edema from the knee down bilateral) GI/Abdominal: soft (Except for a bout 5 cm around the colostomy appliance that is firm and slightly edematous. The lower abdomen is also pink and warm. There are tool hernia sites: Clean dry ursula intact except one staple loose on the guillaume-umbilical incision. Colostomy draining semi-liquid brown stool) Back Exam: normal inspection Extremities: pedal edema, other (2+ pitting edema from the knees down) Neurological: alert, oriented, no motor/sensory deficits Psychiatric: normal affect, normal mood Skin Exam: Warm, Dry, Intact, Normal color, No rash Lymphatic: no adenopathy Course - Vital Signs Last Recorded V/S: Last Vital Signs Temp 37.0 C 02/19/17 14:46 Pulse 92 02/19/17 14:46 Resp 16 02/19/17 14:46 BP 127/67 02/19/17 14:46 Pulse Ox 100 02/19/17 14:46 - Orders/Labs/Meds Orders: Active Orders 24 hr Category Date Time Status EKG Documentation Completion [RC] STAT Care 02/19/17 14:41 Ordered Abdomen Pelvis wo Cont [CT] Stat Exams 02/19/17 14:41 Ordered B-TYPE NATRIURETIC PEPTIDE,BNP [CHEM] Stat Lab 02/19/17 14:40 Ordered CBC WITH AUTO DIFF [HEME] Stat Lab 02/19/17 14:37 Ordered CMP [COMPREHENSIVE METABOLIC PN,CMP] [CHEM] Stat Lab 02/19/17 14:37 Ordered CULTURE BLOOD [BC] Stat Lab 02/19/17 14:42 Ordered CULTURE BLOOD [BC] Stat Lab 02/19/17 14:42 Ordered LACTIC ACID,WHOLE BLOOD [BG] Stat Lab 02/19/17 14:42 Ordered TROPONIN I [CHEM] Stat Lab 02/19/17 14:42 Ordered UA W/MICROSCOPIC [URIN] Stat Lab 02/19/17 14:43 Uncollected Blood Culture x2 Reflex Set [OM.PC] Stat Oth 02/19/17 14:42 Ordered - Re-Assessments/Exams Free Text/Narrative Re-Assessment/Exam: 02/19/17 17:47 Dr. Tiago Esquivel, Hospitalist here to assess the patient. Reviewed labs and CT. Departure - Departure Time of Disposition: 17:48 Disposition: Admitted As Inpatient 67 Condition: fair Clinical Impression: Cellulitis Qualifiers: Site of cellulitis: trunk Site of cellulitis of trunk: abdominal wall Qualified Code(s): L03.311 - Cellulitis of abdominal wall Forms: ED Department Discharge - My Orders Last 24 Hours: My Active Orders 02/19/17 14:37 CBC WITH AUTO DIFF [HEME] Stat CMP [COMPREHENSIVE METABOLIC PN,CMP] [CHEM] Stat 02/19/17 14:40 B-TYPE NATRIURETIC PEPTIDE,BNP [CHEM] Stat 02/19/17 14:41 EKG Documentation Completion [RC] STAT Abdomen Pelvis wo Cont [CT] Stat 02/19/17 14:42 CULTURE BLOOD [BC] Stat CULTURE BLOOD [BC] Stat LACTIC ACID,WHOLE BLOOD [BG] Stat TROPONIN I [CHEM] Stat Blood Culture x2 Reflex Set [OM.PC] Stat 02/19/17 14:43 UA W/MICROSCOPIC [URIN] Stat - Assessment/Plan Last 24 Hours: My Active Orders 02/19/17 14:37 CBC WITH AUTO DIFF [HEME] Stat CMP [COMPREHENSIVE METABOLIC PN,CMP] [CHEM] Stat 02/19/17 14:40 B-TYPE NATRIURETIC PEPTIDE,BNP [CHEM] Stat 02/19/17 14:41 EKG Documentation Completion [RC] STAT Abdomen Pelvis wo Cont [CT] Stat 02/19/17 14:42 CULTURE BLOOD [BC] Stat CULTURE BLOOD [BC] Stat LACTIC ACID,WHOLE BLOOD [BG] Stat TROPONIN I [CHEM] Stat Blood Culture x2 Reflex Set [OM.PC] Stat 02/19/17 14:43 UA W/MICROSCOPIC [URIN] Stat
[2017-02-19 15:49] LABS: CHLORIDE,CL 104 mmol/L (98-110); SODIUM,NA 139 mmol/L (136-146)
--- NOTE | 2017-02-19 16:30 | CT ---
EXAM DATE: 02/19/17 PATIENT'S AGE: 41 Patient: SALLY VILLA Facility: [place], [place] Site . Site : 1975 Study: CT Abdomen/Pelvis [id number]/25/2017 3:59:39 PM Ordering Physician: Doctor Diego Final Report: INDICATION: Abdominal swelling and fever following surgery TECHNIQUE: CT abdomen and pelvis without i.v. contrast. Coronal and sagittal reformats were obtained. COMPARISON: None FINDINGS: Lower chest: Mild anemia is present with the cardiac chambers appearing lucent with respect to the myocardium. Liver: A small, ill-defined hypodensity is present in the left lobe of the liver , abutting the fissure for the ligamentum teres, which is most likely due to focal fatty infiltration. Spleen: Unremarkable. Pancreas: Unremarkable. Gallbladder and bile ducts: The patient is status post cholecystectomy. Kidneys: Unremarkable. No kidney or ureteral stones and no hydronephrosis seen. Adrenal glands: Unremarkable. GI tract: Partial colectomy is present with a right lower quadrant diverting colostomy and rectal stump. Moderate wall thickening is present within the exiting segment of colon within the subcutaneous tissues. The appendix is normal in appearance and size. The patient is status post a gastric bypass. Vascular: Unremarkable. Lymph nodes: A 1.2 cm right inguinal lymph node is seen. Miscellaneous: A right upper quadrant subcutaneous fluid collection is present measuring 8.8 x 3 cm. Diffuse subcutaneous edema is present. Trace pneumoperitoneum is seen. Trace abdominal ascites is noted. Pelvic Organs: There is a 3.7 cm cyst or follicle in the left ovary. Bones: Unremarkable for age. IMPRESSION: 1. Trace pneumoperitoneum is present and likely related to recent surgery. 2. A subcutaneous fluid collection is seen in the right anterior abdomen. This may represent a postoperative hematoma. Abscess cannot be excluded without the use of intravenous contrast. 3. Wall thickening within the exiting segment of colon in the colostomy is noted which may be due to postoperative edema. Follow up imaging is recommended to document resolution. 4. There is a 3.7 cm cyst or follicle in the left ovary. Dictated by Andrews Horan MD @ 02/19/2017 4:12:54 PM Dictated by: Andrews Horan MD @ 02/19/2017 16:13:04 (Electronic Signature) Report Signed by Proxy and Original Signed Document filed in the Medical Record. KODY
[2017-02-19] MEDS ORDERED: Acetaminophen/HYDROcodone 325-10 MG Tab PO ONE (16:33)
[2017-02-19] MEDS ORDERED: Sodium Chloride 0.9% 10 ML Syringe FLUSH PRN (16:35)
[2017-02-19] MEDS ORDERED: Sodium Chloride 0.9% 2.5 ML Syringe FLUSH PRN (16:35)
--- NOTE | 2017-02-19 19:27 | PCM.CONS ---
H&P History of Present Illness - General Date of Service: 02/19/17 Admit Problem/Dx: Posat operative edema and swelling. Post operative cellulitis. Source of Information: Patient History Limitations: Reports: No limitations - History of Present Illness Initial Comments - Free Text/Narative: Patient is a 41 year old obese female who presents to the ED 6 days after a colostomy re-siting in [place], [place] by Dr. King. We do not have her hospital records at this time, but according to her this is her fourth stomal re -siting. She originally had an end colostomy performed to divert stool flow from distal fistulas secondary to Crohn's disease. Her quality of life was greatly improved due to the colostomy and the patient and her physician at the time decided to keep the stoma. That stoma was complicated by an infection. It was moved to the LUQ. This was also complicated by infection so her stoma was moved to the RUQ. This site was complicated by parastomal hernias. These were previously repaired with mesh. The patient had this stoma placed in the RLQ. According to her the stoma had to be placed through mesh. Post operatively she had intermittent fevers with no evidence of infection. She had blood cultures that were negative and was eventually sent home last Saturday on amoxicillin clavulanate. Over the last day she has developed increased lower extremity and abdominal swelling. She is unsure if she has had any fevers. Her stoma is functioning well and she has been having regular stool output. It is swollen but well perfused with minimal sluffing. She is complaining of some shortness of breath and that, along with the edema, brought her to the ED today. She denies nausea or vomiting. She denies chest pain. She denies any pain other than post-surgical. Abdomen Pain Score (Numeric/FACES): 6 - Related Data Allergies/Adverse Reactions: Allergies Allergy/AdvReac Type Severity Reaction Status Date / Time No Known Allergies Allergy Verified 02/19/17 14:49 Home Medications: Home Meds Amoxicillin 250 mg PO BID 02/19/17 [History] Hydrocodone/Acetaminophen [[place] 10-325 Tablet] 1 tab PO Q6HR PRN 02/19/17 [ History] Past Medical History - Past Health History Medical/Surgical History: Denies Medical/Surgical History HEENT History: Reports: None Cardiovascular History: Reports: None Respiratory History: Reports: None Gastrointestinal History: Reports: Other (see below) Other Gastrointestinal History: Crohn's dse Genitourinary History: Reports: None 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 History: Reports: None Neurological History: Reports: None Psychiatric History: Reports: Depression Endocrine/Metabolic History: Reports: None Hematologic History: Reports: None Immunologic History: Reports: None Oncologic (Cancer) History: Reports: None Dermatologic History: Reports: None - Infectious Disease History Infectious Disease History: Reports: Chicken pox - Past Surgical History Head Surgeries/Procedures: Reports: None GI Surgical History: Reports: Cholecystectomy Other GI Surgeries/Procedures: Colostomy; Gastric bypass; Hernai repair x 2 Female Surgical History: Reports: section Other Female Surgeries/Procedures: x 2 Social & Family History - Family History Family Medical History: Noncontributory - Tobacco Use Smoking Status *Q: Never Smoker Second Hand Smoke Exposure: No - Caffeine Use Caffeine Use: Reports: None Caffeine Use Comment: 8drinks/day - Alcohol Use Days Per Week of Alcohol Use: 7 Number of Drinks Per Day: 5 Total Drinks Per Week: 35 - Recreational Drug Use Recreational Drug Use: No H&P Review of Systems - Review of Systems: Review Of Systems: See Below General: Reports: fever HEENT: Reports: no symptoms Pulmonary: Reports: Shortness of Breath Cardiovascular: Reports: no symptoms Gastrointestinal: Reports: Abdominal pain Genitourinary: Reports: no symptoms Musculoskeletal: Reports: no symptoms Skin: Reports: erythema, other (lower abdominal swelling, lower leg edema ) Psychiatric: Reports: no symptoms Neurological: Reports: No Symptoms Hematologic/Lymphatic: Reports: no symptoms Immunologic: Reports: no symptoms Exam - Exam Exam: See Below - Vital Signs Vital Signs: Last Vital Signs Temp 37.0 C 02/19/17 14:46 Pulse 92 02/19/17 15:38 Resp 18 02/19/17 15:38 BP 119/69 02/19/17 15:38 Pulse Ox 100 02/19/17 15:38 Weight: 95.8 kg - Exam General: alert, oriented, cooperative Neck: supple Lungs: Clear to auscultation, Normal respiratory effort Cardiovascular: regular rate, regular rhythm Abdomen: soft, other (No rebound or guarding. Firm area of swelling along right lower aspect of stomal site corresponding to the CT findings. This is very firm and NOT fluctuant. There is some mild erythema and warmth extending along the right lower pannus. The lower pannus is edematous and non tender. Stoma itself is swollen but well perfused with minimal sluffing. It is widely patent and I am able to easily pass a finger past the fascia. There is no tenderness to palpation around and through the stoma. There is stool contents in the stoma bag. ) Skin: warm, dry, intact Neuro Extensive - Mental Status: alert, oriented x3, normal mood/affect, normal cognition Physical Exam Comments:: Patient has deep pitting edema in the left lower extremity. There is some edema in the right lower leg, but not pitting on my exam. - Patient Data Lab Results last 24 hrs: Laboratory Results - last 24 hr 02/19/17 02/19/17 02/19/17 Range/Units 15:05 15:05 15:05 WBC 9.72 (4.0-11.0) K/uL RBC 3.05 L (4.30-5.90) M/uL Hgb 9.0 L (12.0-16.0) g/dL Hct 27.9 L (36.0-46.0) % MCV 91.5 (80.0-98.0) fL MCH 29.5 (27.0-32.0) pg MCHC 32.3 (31.0-37.0) g/dL RDW Std Deviation 54.0 (28.0-62.0) fl RDW Coeff of Ankit 17 H (11.0-15.0) % Plt Count 520 H (150-400) K/uL MPV 9.60 (7.40-12.00) fL Add Manual Diff YES Neutrophils % (Manual) 81 H (48.0-80.0) % Band Neutrophils % 7 % Lymphocytes % (Manual) 7 L (16.0-40.0) % Monocytes % (Manual) 5 (0.0-15.0) % Nucleated RBC % 0.0 /100WBC Absolute Seg Neuts 7.9 Band Neutrophils # 0.7 Lymphocytes # (Manual) 0.7 Monocytes # (Manual) 0.5 Nucleated RBCs # 0 K/uL Lactate (0.20-2.00) mmol/L Sodium 139 (136-146) mmol/L Potassium 3.1 L (3.5-5.1) mmol/L Chloride 104 (98-110) mmol/L Carbon Dioxide 24 (21-31) mmol/L BUN 3 L (6.0-23.0) mg/dL Creatinine 0.5 L (0.6-1.5) mg/dL Est Cr Clr Drug Dosing 129.15 mL/min Estimated GFR (MDRD) > 60.0 ml/min Glucose 77 (60-110) mg/dL Calcium 8.3 L (8.8-10.8) mg/dL Total Bilirubin 0.4 (0.1-1.5) mg/dL AST 35 (5-40) IU/L ALT 25 (8-54) IU/L Alkaline Phosphatase 116 (40-150) Troponin I (0.0-0.29) NG/ML B-Natriuretic Peptide 90 (<100) PG/ML Total Protein 5.6 L (6.0-8.0) g/dL Albumin 2.4 L (3.5-5.0) g/dL Globulin 3.2 (2.0-3.5) g/dL Albumin/Globulin Ratio 0.8 L (1.3-2.8) Urine Color Urine Appearance Urine pH (5.0-8.0) Ur Specific [place] (1.001-1.035) Urine Protein (NEGATIVE) mg/dL Urine Glucose (UA) (NEGATIVE) mg/dL Urine Ketones (NEGATIVE) mg/dL Urine Occult Blood (NEGATIVE) Urine Nitrite (NEGATIVE) Urine Bilirubin (NEGATIVE) Urine Urobilinogen (<2.0) EU/dL Ur Leukocyte Esterase (NEGATIVE) Urine RBC (0-2/HPF) Urine WBC (0-5/HPF) Ur Epithelial Cells (NONE-FEW) Urine Bacteria (NEGATIVE) 02/19/17 02/19/17 02/19/17 Range/Units 15:05 15:05 16:16 WBC (4.0-11.0) K/uL RBC (4.30-5.90) M/uL Hgb (12.0-16.0) g/dL Hct (36.0-46.0) % MCV (80.0-98.0) fL MCH (27.0-32.0) pg MCHC (31.0-37.0) g/dL RDW Std Deviation (28.0-62.0) fl RDW Coeff of Ankit (11.0-15.0) % Plt Count (150-400) K/uL MPV (7.40-12.00) fL Add Manual Diff Neutrophils % (Manual) (48.0-80.0) % Band Neutrophils % % Lymphocytes % (Manual) (16.0-40.0) % Monocytes % (Manual) (0.0-15.0) % Nucleated RBC % /100WBC Absolute Seg Neuts Band Neutrophils # Lymphocytes # (Manual) Monocytes # (Manual) Nucleated RBCs # K/uL Lactate 1.2 (0.20-2.00) mmol/L Sodium (136-146) mmol/L Potassium (3.5-5.1) mmol/L Chloride (98-110) mmol/L Carbon Dioxide (21-31) mmol/L BUN (6.0-23.0) mg/dL Creatinine (0.6-1.5) mg/dL Est Cr Clr Drug Dosing mL/min Estimated GFR (MDRD) ml/min Glucose (60-110) mg/dL Calcium (8.8-10.8) mg/dL Total Bilirubin (0.1-1.5) mg/dL AST (5-40) IU/L ALT (8-54) IU/L Alkaline Phosphatase (40-150) Troponin I < 0.10 (0.0-0.29) NG/ML B-Natriuretic Peptide (<100) PG/ML Total Protein (6.0-8.0) g/dL Albumin (3.5-5.0) g/dL Globulin (2.0-3.5) g/dL Albumin/Globulin Ratio (1.3-2.8) Urine Color YELLOW Urine Appearance CLEAR Urine pH 6.0 (5.0-8.0) Ur Specific [place] 1.010 (1.001-1.035) Urine Protein NEGATIVE (NEGATIVE) mg/dL Urine Glucose (UA) NEGATIVE (NEGATIVE) mg/dL Urine Ketones 15 H (NEGATIVE) mg/dL Urine Occult Blood NEGATIVE (NEGATIVE) Urine Nitrite NEGATIVE (NEGATIVE) Urine Bilirubin NEGATIVE (NEGATIVE) Urine Urobilinogen 0.2 (<2.0) EU/dL Ur Leukocyte Esterase NEGATIVE (NEGATIVE) Urine RBC 0-1 (0-2/HPF) Urine WBC 0-1 (0-5/HPF) Ur Epithelial Cells FEW (NONE-FEW) Urine Bacteria RARE (NEGATIVE) Result Diagrams: 02/19/17 15:05 02/19/17 15:05 Salvatore Results last 24 hrs: Microbiology 02/19/17 15:05 Anaerobic Blood Culture - Final Blood - Venous Consult PN Assessment/Plan Procedures: Procedures ASSAY OF FERRITIN (12/28/16) ASSAY OF MAGNESIUM (02/05/17) ASSAY THYROID STIM HORMONE (02/05/17) CHEST X-RAY 2VW FRONTAL&LATL (11/19/16) COMPLETE CBC W/AUTO DIFF WBC (02/05/17) COMPREHEN METABOLIC PANEL (02/05/17) CT HEAD/BRAIN W/O DYE (02/05/17) CT MAXILLOFACIAL W/O DYE (01/03/17) CULTURE SCREEN ONLY (11/19/16) DRUG TEST PRSMV DIR OPT OBS (02/05/17) ELECTROCARDIOGRAM TRACING (02/05/17) EMERGENCY DEPT VISIT (02/05/17) EMERGENCY DEPT VISIT (01/19/17) GLUCOSE BLOOD TEST (02/05/17) HETEROPHILE ANTIBODY SCREEN (11/19/16) HYDRATE IV INFUSION ADD-ON (02/05/17) IMMUNIZATION ADMIN (02/05/17) INFLUENZA ASSAY W/OPTIC (11/19/16) PROTHROMBIN TIME (02/05/17) ROUTINE VENIPUNCTURE (02/05/17) STREP A ASSAY W/OPTIC (11/19/16) TDAP VACCINE 7 YRS/> IM (02/05/17) THER/PROPH/DIAG IV INF INIT (02/05/17) TX/PRO/DX INJ NEW DRUG ADDON (02/05/17) TX/PROPH/DG ADDL SEQ IV INF (02/05/17) URINALYSIS AUTO W/SCOPE (02/05/17) URINE TEST (02/05/17) VITAMIN B-12 (12/28/16) (1) Postoperative edema SNOMED Code(s): 585478531 Code(s): R60.9 - EDEMA, UNSPECIFIED Current Visit: Yes (2) Cellulitis SNOMED Code(s): 626958310 Code(s): L03.90 - CELLULITIS, UNSPECIFIED Current Visit: Yes Qualifiers: Site of cellulitis: trunk Site of cellulitis of trunk: abdominal wall Qualified Code(s): L03.311 - Cellulitis of abdominal wall Problem List Initiated/Reviewed/Updated: Yes Plan: The patient has a very complex past medical and surgical history. I would like to obtain [facility] from [facility] regarding the surgery and her post operative course. At this point in time the patient has edema in her lower extremities L>>R. I would rule out a DVT with bilateral lower extremity US tonight. I would have a low threshold to do a CT angiogram of the lungs if she starts showing signs of PE (increased SOB, tachypnea, tachycardia, chest pain, hemodynamic instability, low O2 sats). Given her size and post operative state she is at high risk for developing a DVT. This could be post operative fluid overload given that she also has subjective shortness of breath, diffuse edema of the abdominal tissues, and the swelling is bilateral. I would recommend gentle diuresis overnight. The CT read of her abdomen shows a subcutaneous fluid collection is seen in the right anterior abdomen. This may represent a postoperative hematoma, but an abscess cannot be excluded without the use of intravenous contrast. I am concerned that she may have a developing infection at the site due to the swelling and mild erythema and warmth along the right pannus. However, her WBC is within normal limits, she has no fever, and vitals are all stable. I also feel no evidence of fluctuance at the site. This warrants close monitoring. She is currently being given vancomycin and zosyn. Blood cultures have been drawn. If overnight she develops fevers or has any clinical deterioration (increased erythema, swelling, pain at the site), I would transfer her to [place] to be evaluated by the surgical team. If she has no improvement over the next 12 hours , I would transfer her as well. The fact that this may be a possible abscess over intra-abdominal mesh, she has a history of parastomal infections, and is ~ 1 week out (when post operative abscesses develop) gives me a low threshold for transfer. Should she get any further imaging I would repeat her abdominal CT with IV contrast as long as her BUN/Cr stay stable. If her diffuse edema, and erythema/warmth along the pannus improves, I would discharge her home on an aggressive oral antibiotic regiment with close follow up in [place] (i.e. Saturday this week).
[2017-02-19] MEDS ORDERED: Furosemide 40 MG/4 ML VIAL IVPUSH ONE (19:43)
--- NOTE | 2017-02-19 20:00 | PCM.HP ---
H&P History of Present Illness - General Admit Problem/Dx: Posat operative edema and swelling. Post operative cellulitis. - History of Present Illness Initial Comments - Free Text/Narative: 41 yo female with pmh of Crohn's disease. Six days ago she had a colostomy resiting done at [facility]. The resiting was done due to frequent hernias. Colostpmy was initially placed in 2008 during colon resection for fistulas. Since then she reports her Crohn's disease has been well controlled and she is on no medications for her Crohn's disease. After the surgery she reported to have fevers but as she begged to go home she was discharged. She notice some increasing erythema and induration around the stoma site. When she was discharged she noticed edema in her buttock but this has spread to her legs and has gotten worse. She reports orthopnea and sleeps with 3-4 pillows. She denies any chest pain or cough. Abdomen Pain Score (Numeric/FACES): 6 - Related Data Allergies/Adverse Reactions: Allergies Allergy/AdvReac Type Severity Reaction Status Date / Time No Known Allergies Allergy Verified 02/19/17 14:49 Home Medications: Home Meds Amoxicillin 250 mg PO BID 02/19/17 [History] Hydrocodone/Acetaminophen [[place] 10-325 Tablet] 1 tab PO Q6HR PRN 02/19/17 [ History] Past Medical History - Past Health History Medical/Surgical History: Denies Medical/Surgical History HEENT History: Reports: None Cardiovascular History: Reports: None Respiratory History: Reports: None Gastrointestinal History: Reports: Other (see below) Other Gastrointestinal History: Crohn's dse Genitourinary History: Reports: None [employer] History: Reports: Musculoskeletal History: Reports: None Neurological History: Reports: None Psychiatric History: Reports: Depression Endocrine/Metabolic History: Reports: None Hematologic History: Reports: None Immunologic History: Reports: None Oncologic (Cancer) History: Reports: None Dermatologic History: Reports: None - Infectious Disease History Infectious Disease History: Reports: Chicken pox - Past Surgical History Head Surgeries/Procedures: Reports: None GI Surgical History: Reports: Cholecystectomy Other GI Surgeries/Procedures: Colostomy; Gastric bypass; Hernai repair x 2 Female Surgical History: Reports: section Other Female Surgeries/Procedures: x 2 Social & Family History - Family History Family Medical History: Noncontributory - Tobacco Use Smoking Status *Q: Never Smoker Second Hand Smoke Exposure: No - Caffeine Use Caffeine Use: Reports: None Caffeine Use Comment: 8drinks/day - Alcohol Use Days Per Week of Alcohol Use: 7 Number of Drinks Per Day: 5 Total Drinks Per Week: 35 - Recreational Drug Use Recreational Drug Use: No H&P Review of Systems - Review of Systems: Review Of Systems: See Below General: Reports: no symptoms HEENT: Reports: no symptoms Pulmonary: Reports: No Symptoms Cardiovascular: Reports: no symptoms Gastrointestinal: Reports: No symptoms Genitourinary: Reports: no symptoms Musculoskeletal: Reports: no symptoms Skin: Reports: no symptoms Psychiatric: Reports: no symptoms Neurological: Reports: No Symptoms Hematologic/Lymphatic: Reports: no symptoms Immunologic: Reports: no symptoms Exam - Exam Exam: See Below - Vital Signs Vital Signs: Last Vital Signs Temp 37.0 C 02/19/17 14:46 Pulse 92 02/19/17 15:38 Resp 18 02/19/17 15:38 BP 119/69 02/19/17 15:38 Pulse Ox 100 02/19/17 15:38 Weight: 95.8 kg - Exam General: alert, oriented, 4 Lungs: Clear to auscultation, Normal respiratory effort Cardiovascular: regular rate, regular rhythm Abdomen: other (3-4 cm of edema and induration around right side of colostomy, ) Extremities: edema (+2 leg edema) - Patient Data Result Diagrams: 02/19/17 15:05 02/19/17 15:05 *Q Meaningful Use (ADM) - VTE *Q VTE Criteria *Q: - Stroke *Q Stroke Criteria *Q: - AMI *Q AMI Criteria *Q: Problem List Initiated/Reviewed/Updated: Yes Orders Last 24hrs: Active Orders 24 hr Category Date Time Status Patient Status [ADT] Routine ADT 02/19/17 19:48 Ordered Antiembolic Devices [RC] PER UNIT ROUTINE Care 02/19/17 19:53 Ordered Intake and Output [RC] QSHIFT Care 02/19/17 19:49 Ordered Oxygen Therapy [RC] PRN Care 02/19/17 19:48 Ordered Up ad Alissa [RC] ASDIRECTED Care 02/19/17 19:48 Ordered VTE/DVT Education [RC] PER UNIT ROUTINE Care 02/19/17 19:48 Ordered Vital Signs [RC] Q4H Care 02/19/17 19:48 Ordered Regular Diet [DIET] Diet 02/19/17 Breakfast Ordered Echo 2D wo Cont [US] Routine Exams 02/19/17 19:47 Ordered Venous Doppler Lwr Ext Bi [US] Routine Exams 02/19/17 19:45 Ordered BASIC METABOLIC PANEL,BMP [CHEM] AM Lab 02/20/17 05:11 Ordered BASIC METABOLIC PANEL,BMP [CHEM] AM Lab 02/21/17 05:11 Ordered BASIC METABOLIC PANEL,BMP [CHEM] AM Lab 02/22/17 05:11 Ordered CBC WITH AUTO DIFF [HEME] AM Lab 02/20/17 05:11 Ordered CBC WITH AUTO DIFF [HEME] AM Lab 02/21/17 05:11 Ordered CBC WITH AUTO DIFF [HEME] AM Lab 02/22/17 05:11 Ordered Morphine Med 02/19/17 19:48 Ordered 2 mg IVPUSH Q3H PRN Piperacillin/Tazobactam [Piperacil-Tazobact] 3.375 gm Med 02/19/17 19:45 Ordered Sodium Chloride 0.9% [Normal Saline] 50 ml IV Q6H Vancomycin Pharmacy to Dose [Pharmacy to Dose - Med 02/19/17 19:45 Ordered Vancomycin] 1 dose .XX ASDIRECTED oxyCODONE Med 02/19/17 19:48 Ordered 5 mg PO Q4H PRN Sequential Compression Device [OM.PC] Per Unit Routine Oth 02/19/17 19:49 Ordered Resuscitation Status Routine Resus Stat 02/19/17 19:48 Ordered Medication Orders Piperacillin Sod/Tazobactam (Sod 3.375 gm/ Sodium Chloride) 50 mls @ 100 mls/ hr IV Q6H [facility] Morphine Sulfate (Morphine) 2 mg IVPUSH Q3H PRN PRN Reason: Pain (severe 7-10) Stop: 02/20/17 19:49 Oxycodone HCl (Oxycodone) 5 mg PO Q4H PRN PRN Reason: Pain (moderate 4-6) Sodium Chloride (Saline Flush) 10 ml FLUSH ASDIRECTED PRN PRN Reason: Keep Vein Open Sodium Chloride (Saline Flush) 2.5 ml FLUSH ASDIRECTED PRN PRN Reason: Keep Vein Open Vancomycin HCl (Pharmacy To Dose - Vancomycin) 1 dose .XX ASDIRECTED [facility] Assessment/Plan Comment:: 41 yo female admitted for abdominal wall cellulitis and lower extremety edema. Abdominal wall cellulitis vs hematoma: Dr. Oconnor consulted. We will monitor overnight and treat with broad spectrum antibiotics with vancomycin and zosyn. Fluid overload: likely from Fluids given during recent hospitalization. We will give lasix. Dopplar of legs and Echocardiogram ordered.
[2017-02-19] MEDS ORDERED: Potassium Chloride 20 MEQ Tab.ER PO ONE (20:02)
[2017-02-19] MEDS: oxyCODONE 5 MG Tab PO PRN (20:58)
[2017-02-19] MEDS: Piperacillin/Tazobactam 3.375 GM in Sodium Chloride 0.9% 50 ML IV SCH (21:53)
[2017-02-19] MEDS: traZODone 50 MG Tab PO SCH (23:32)
[2017-02-19] MEDS: Morphine 10 MG/ML Syringe IVPUSH PRN (23:32)
[2017-02-20] MEDS: Piperacillin/Tazobactam 3.375 GM in Sodium Chloride 0.9% 50 ML IV SCH ×4 (01:39→20:38)
[2017-02-20] MEDS: oxyCODONE 5 MG Tab PO PRN ×5 (01:40→21:15)
[2017-02-20] MEDS: Morphine 10 MG/ML Syringe IVPUSH PRN ×5 (05:04→22:41)
[2017-02-20 05:41] LABS: CHLORIDE,CL 104 mmol/L (98-110); SODIUM,NA 140 mmol/L (136-146)
[2017-02-20] MEDS: Vancomycin 1.5 GM in Sodium Chloride 0.9% 500 ML IV SCH ×2 (09:49→22:30)
[2017-02-20] MEDS ORDERED: Furosemide 40 MG/4 ML VIAL IVPUSH ONE (10:45)
--- NOTE | 2017-02-20 13:50 | PCM.PN ---
- General Info Date of Service: 02/20/17 Admission Dx/Problem (Free Text): Posat operative edema and swelling. Post operative cellulitis. Subjective Update: Patient notes that she is breathing much better and has less peripheral edema since receiving multiple doses of Lasix yesterday. The erythema on the right lower half of her abdomen is significantly improved and the patient is feeling much better. She is tolerating oral intake, voiding appropriately and has no acute concerns. Functional Status: Reports: pain controlled, tolerating diet, ambulating, urinating - Review of Systems General: Reports: No Symptoms HEENT: Reports: no symptoms Pulmonary: Reports: no symptoms Cardiovascular: Reports: No Symptoms Gastrointestinal: Reports: No symptoms Genitourinary: Reports: no symptoms Musculoskeletal: Reports: no symptoms Skin: Reports: other (The erythema in the right lower quadrant of the abdomen is significantly improved. Induration is still evident and somewhat larger than yesterday.) Neurological: Reports: No Symptoms Psychiatric: Reports: no symptoms - Patient Data Vitals - most recent: Last Vital Signs Temp 98.7 F 02/20/17 11:47 Pulse 94 02/20/17 11:47 Resp 16 02/20/17 11:47 BP 118/70 02/20/17 11:47 Pulse Ox 95 02/20/17 11:47 Weight - most recent: 211 lb 3.245 oz I&O - last 24 hours: Intake & Output 02/19/17 02/20/17 02/20/17 22:59 06:59 14:59 Intake Total 150 1600 550 Output Total 4200 Balance 150 -2600 550 Lab Results last 24 hrs: Laboratory Results - last 24 hr 02/20/17 02/20/17 02/20/17 Range/Units 05:01 05:01 12:07 WBC 8.36 10.48 (4.0-11.0) K/uL RBC 2.85 L 3.09 L (4.30-5.90) M/uL Hgb 8.2 L 9.0 L (12.0-16.0) g/dL Hct 26.1 L 28.5 L (36.0-46.0) % MCV 91.6 92.2 (80.0-98.0) fL MCH 28.8 29.1 (27.0-32.0) pg MCHC 31.4 31.6 (31.0-37.0) g/dL RDW Std Deviation 54.6 56.0 (28.0-62.0) fl RDW Coeff of Ankit 17 H 17 H (11.0-15.0) % Plt Count 537 H 635 H (150-400) K/uL MPV 9.20 9.40 (7.40-12.00) fL Add Manual Diff YES YES Neutrophils % (Manual) 81 H 82 H (48.0-80.0) % Band Neutrophils % 5 4 % Lymphocytes % (Manual) 8 L 10 L (16.0-40.0) % Monocytes % (Manual) 4 4 (0.0-15.0) % Eosinophils % (Manual) 2 (0.0-7.0) % Nucleated RBC % 0.0 0.0 /100WBC Absolute Seg Neuts 6.8 8.6 Band Neutrophils # 0.4 0.4 Lymphocytes # (Manual) 0.7 1.0 Monocytes # (Manual) 0.3 0.4 Eosinophils # (Manual) 0.2 Nucleated RBCs # 0 0 K/uL Sodium 140 (136-146) mmol/L Potassium 3.7 (3.5-5.1) mmol/L Chloride 104 (98-110) mmol/L Carbon Dioxide 27 (21-31) mmol/L BUN 2 L (6.0-23.0) mg/dL Creatinine 0.6 (0.6-1.5) mg/dL Est Cr Clr Drug Dosing 107.63 mL/min Estimated GFR (MDRD) > 60.0 ml/min Glucose 81 (60-110) mg/dL Calcium 7.3 L (8.8-10.8) mg/dL Med Orders - Current: Current Medications Piperacillin Sod/Tazobactam (Sod 3.375 gm/ Sodium Chloride) 50 mls @ 100 mls/ hr IV Q6H [facility] Last Admin: 02/20/17 13:01 Dose: 100 mls/hr Vancomycin HCl 1.5 gm/ Sodium (Chloride) 500 mls @ 333.333 mls/hr IV Q12H [facility] Last Admin: 02/20/17 09:49 Dose: 333.333 mls/hr Morphine Sulfate (Morphine) 2 mg IVPUSH Q3H PRN PRN Reason: Pain (severe 7-10) Last Admin: 02/20/17 11:58 Dose: 2 mg Oxycodone HCl (Oxycodone) 5 mg PO Q4H PRN PRN Reason: Pain (moderate 4-6) Last Admin: 02/20/17 13:00 Dose: 5 mg Sodium Chloride (Saline Flush) 10 ml FLUSH ASDIRECTED PRN PRN Reason: Keep Vein Open Sodium Chloride (Saline Flush) 2.5 ml FLUSH ASDIRECTED PRN PRN Reason: Keep Vein Open Trazodone HCl (Trazodone) 150 mg PO BEDTIME [facility] Last Admin: 02/19/17 23:32 Dose: 150 mg Vancomycin HCl (Pharmacy To Dose - Vancomycin) 1 dose .XX ASDIRECTED [facility] Discontinued Medications Hydrocodone Bitart/Acetaminophen ([place] 325-10 Mg) 1 tab PO ONETIME ONE Stop: 02/19/17 16:34 Last Admin: 02/19/17 18:25 Dose: 1 tab Furosemide (Lasix) 40 mg IVPUSH NOW ONE Stop: 02/19/17 19:44 Last Admin: 02/19/17 20:55 Dose: 40 mg Furosemide (Lasix) 40 mg IVPUSH NOW ONE Stop: 02/20/17 10:46 Last Admin: 02/20/17 10:43 Dose: 40 mg Vancomycin HCl 1 gm/ Sodium (Chloride) 250 mls @ 250 mls/hr IV ONETIME ONE Stop: 02/19/17 17:31 Last Admin: 02/19/17 18:28 Dose: 250 mls/hr Vancomycin HCl 500 mg/ Sodium (Chloride) 100 mls @ 100 mls/hr IV ONETIME ONE Stop: 02/19/17 21:59 Vancomycin HCl 500 mg/ Sodium (Chloride) 100 mls @ 100 mls/hr IV ONETIME ONE Stop: 02/19/17 21:59 Last Admin: 02/19/17 20:52 Dose: 100 mls/hr Potassium Chloride (Klor-Con M20) 60 meq PO ONETIME ONE Stop: 02/19/17 20:03 Last Admin: 02/19/17 20:56 Dose: 60 meq - Exam Quality Assessment: DVT prophylaxis (scd's) General: alert, oriented, cooperative, no acute distress Lungs: Clear to auscultation, Normal respiratory effort Cardiovascular: Regular Rate, Regular Rhythm Abdomen: bowel sounds present, soft, no tenderness, no distension, other ( Patient does have multiple scars in her abdomen secondary to multiple placements of colostomy bags.) Extremities: no calf tenderness, edema (Trace edema in the lower extremities bilaterally.) Peripheral Pulses: 2+: radial (L), radial (R) Skin: other (There does not appear to be any erythema in the right lower quadrant which is significantly better than it was yesterday. She still does have an area of induration beside her colostomy bag.) Wound/Incisions: healing well Neurological: no new focal deficit Psy/Mental Status: alert, normal affect, normal mood - Problem List & Annotations (1) Cellulitis SNOMED Code(s): 723997293 Code(s): L03.90 - CELLULITIS, UNSPECIFIED Status: Acute Current Visit: Yes Qualifiers: Site of cellulitis: trunk Site of cellulitis of trunk: abdominal wall Qualified Code(s): L03.311 - Cellulitis of abdominal wall (2) Postoperative edema SNOMED Code(s): 741888138 Code(s): R60.9 - EDEMA, UNSPECIFIED Status: Acute Current Visit: Yes - Problem List Review Problem List Initiated/Reviewed/Updated: Yes - Plan Plan:: 41 yo female admitted for abdominal wall cellulitis and lower extremety edema. #1. Right lower quadrant Abdominal wall cellulitis vs hematoma: -Dr. Oconnor saw the patient this morning and suggested that she followup this week with the surgeon that performed the operation in [place]. Patient does have an appointment set up for Saturday, February 22, [address] Chamberlain. -Right lower quadrant erythema has resolved there is no warmth to palpation in this area. -CT of the abdomen was done without contrast so it is difficult to tell if the underlying induration as a hematoma or an abscess. #2 Fluid overload: -likely from Fluids given during recent hospitalization. Patient received 40 mg of Lasix IV yesterday. She is -2 L since admission. -Patient received another 40 mg of Lasix IV today. -BUN and creatinine are within normal limits. -Patient did get an echo and results are pending. -Lower extremity Doppler was negative. #3. Bacteremia: -blood cultures came back positive for gram-positive cocci in clusters. -She will continue on vancomycin and Zosyn. Disposition: One to 2 days pending improvement.
--- NOTE | 2017-02-20 14:58 | PCM.PN ---
- General Info Date of Service: 02/20/17 Subjective Update: Patient feeling better this am. She had 2L of urine overnight and her lower extremity swelling and abdominal swelling has improved greatly. Bilateral duplex US was negative for any DVT. The redness and warmth over her lower abdominal fold has resolved. The patient continues to have a firm area just to the right of the ostomy site that is tender. She denies any fevers, malaise, chills overnight. Functional Status: Reports: pain controlled, tolerating diet, ambulating - Review of Systems General: Reports: No Symptoms Pulmonary: Reports: no symptoms Cardiovascular: Reports: No Symptoms Gastrointestinal: Reports: Abdominal pain - Patient Data Vitals - most recent: Last Vital Signs Temp 37.1 C 02/20/17 11:47 Pulse 94 02/20/17 11:47 Resp 16 02/20/17 11:47 BP 118/70 02/20/17 11:47 Pulse Ox 95 02/20/17 11:47 Weight - most recent: 95.8 kg I&O - last 24 hours: Intake & Output 02/19/17 02/20/17 02/20/17 22:59 06:59 14:59 Intake Total 150 1600 550 Output Total 4200 Balance 150 -2600 550 Lab Results last 24 hrs: Laboratory Results - last 24 hr 02/20/17 02/20/17 02/20/17 Range/Units 05:01 05:01 12:07 WBC 8.36 10.48 (4.0-11.0) K/uL RBC 2.85 L 3.09 L (4.30-5.90) M/uL Hgb 8.2 L 9.0 L (12.0-16.0) g/dL Hct 26.1 L 28.5 L (36.0-46.0) % MCV 91.6 92.2 (80.0-98.0) fL MCH 28.8 29.1 (27.0-32.0) pg MCHC 31.4 31.6 (31.0-37.0) g/dL RDW Std Deviation 54.6 56.0 (28.0-62.0) fl RDW Coeff of Ankit 17 H 17 H (11.0-15.0) % Plt Count 537 H 635 H (150-400) K/uL MPV 9.20 9.40 (7.40-12.00) fL Add Manual Diff YES YES Neutrophils % (Manual) 81 H 82 H (48.0-80.0) % Band Neutrophils % 5 4 % Lymphocytes % (Manual) 8 L 10 L (16.0-40.0) % Monocytes % (Manual) 4 4 (0.0-15.0) % Eosinophils % (Manual) 2 (0.0-7.0) % Nucleated RBC % 0.0 0.0 /100WBC Absolute Seg Neuts 6.8 8.6 Band Neutrophils # 0.4 0.4 Lymphocytes # (Manual) 0.7 1.0 Monocytes # (Manual) 0.3 0.4 Eosinophils # (Manual) 0.2 Nucleated RBCs # 0 0 K/uL Sodium 140 (136-146) mmol/L Potassium 3.7 (3.5-5.1) mmol/L Chloride 104 (98-110) mmol/L Carbon Dioxide 27 (21-31) mmol/L BUN 2 L (6.0-23.0) mg/dL Creatinine 0.6 (0.6-1.5) mg/dL Est Cr Clr Drug Dosing 107.63 mL/min Estimated GFR (MDRD) > 60.0 ml/min Glucose 81 (60-110) mg/dL Calcium 7.3 L (8.8-10.8) mg/dL Med Orders - Current: Current Medications Piperacillin Sod/Tazobactam (Sod 3.375 gm/ Sodium Chloride) 50 mls @ 100 mls/ hr IV Q6H [facility] Last Admin: 02/20/17 13:01 Dose: 100 mls/hr Vancomycin HCl 1.5 gm/ Sodium (Chloride) 500 mls @ 333.333 mls/hr IV Q12H [facility] Last Admin: 02/20/17 09:49 Dose: 333.333 mls/hr Morphine Sulfate (Morphine) 2 mg IVPUSH Q3H PRN PRN Reason: Pain (severe 7-10) Last Admin: 02/20/17 11:58 Dose: 2 mg Oxycodone HCl (Oxycodone) 5 mg PO Q4H PRN PRN Reason: Pain (moderate 4-6) Last Admin: 02/20/17 13:00 Dose: 5 mg Sodium Chloride (Saline Flush) 10 ml FLUSH ASDIRECTED PRN PRN Reason: Keep Vein Open Sodium Chloride (Saline Flush) 2.5 ml FLUSH ASDIRECTED PRN PRN Reason: Keep Vein Open Trazodone HCl (Trazodone) 150 mg PO BEDTIME [facility] Last Admin: 02/19/17 23:32 Dose: 150 mg Vancomycin HCl (Pharmacy To Dose - Vancomycin) 1 dose .XX ASDIRECTED [facility] Discontinued Medications Hydrocodone Bitart/Acetaminophen ([place] 325-10 Mg) 1 tab PO ONETIME ONE Stop: 02/19/17 16:34 Last Admin: 02/19/17 18:25 Dose: 1 tab Furosemide (Lasix) 40 mg IVPUSH NOW ONE Stop: 02/19/17 19:44 Last Admin: 02/19/17 20:55 Dose: 40 mg Furosemide (Lasix) 40 mg IVPUSH NOW ONE Stop: 02/20/17 10:46 Last Admin: 02/20/17 10:43 Dose: 40 mg Vancomycin HCl 1 gm/ Sodium (Chloride) 250 mls @ 250 mls/hr IV ONETIME ONE Stop: 02/19/17 17:31 Last Admin: 02/19/17 18:28 Dose: 250 mls/hr Vancomycin HCl 500 mg/ Sodium (Chloride) 100 mls @ 100 mls/hr IV ONETIME ONE Stop: 02/19/17 21:59 Vancomycin HCl 500 mg/ Sodium (Chloride) 100 mls @ 100 mls/hr IV ONETIME ONE Stop: 02/19/17 21:59 Last Admin: 02/19/17 20:52 Dose: 100 mls/hr Potassium Chloride (Klor-Con M20) 60 meq PO ONETIME ONE Stop: 02/19/17 20:03 Last Admin: 02/19/17 20:56 Dose: 60 meq - Exam General: alert, oriented HEENT: Pupils equal Lungs: Normal respiratory effort Cardiovascular: Regular Rate Abdomen: soft, other (Edema, swelling and redness have resolved. There remains a firm mass to the right of the ostomy site consistent with possible hematoma. Stoma appears pink, well perfused and there is stool in the bag. ) Extremities: no edema - Problem List & Annotations (1) Postoperative edema SNOMED Code(s): 008746773 Code(s): R60.9 - EDEMA, UNSPECIFIED Status: Acute Current Visit: Yes (2) Cellulitis SNOMED Code(s): 746766342 Code(s): L03.90 - CELLULITIS, UNSPECIFIED Status: Acute Current Visit: Yes Qualifiers: Site of cellulitis: trunk Site of cellulitis of trunk: abdominal wall Qualified Code(s): L03.311 - Cellulitis of abdominal wall - Problem List Review Problem List Initiated/Reviewed/Updated: Yes - Assessment Assessment:: Patients WBC is within normal limits but she continues to have a left shift. Vitals were stable overnight. She had one of four bottles grow G+ cocci which may be a contaminant.The patient states that she was taking ibuprofen with hydrocodone perioperatively. This may have led to a postoperative hematoma. Her hemoglobin was slightly decreased this a.m., but recheck this afternoon showed it to be stable at 9. I believe that the patient has a postoperative hematoma but this has the potential to become infected. She may have also had some cellulitis starting over the wound that is being treated with IV antibiotics now. I would transition her to an oral antibiotic regiment and have her see her colorectal surgeon on Saturday to assess her wound. Ongoing diuresis per the medicine team and discharge at their discretion. Will continue to follow the patient until discharge. - Plan Plan:: 41 yo female admitted for abdominal wall cellulitis and lower extremety edema. #1. Right lower quadrant Abdominal wall cellulitis vs hematoma: -Dr. Oconnor saw the patient this morning and suggested that she followup this week with the surgeon that performed the operation in [place]. Patient does have an appointment set up for Saturday, February 22, [address] Chamberlain. -Right lower quadrant erythema has resolved there is no warmth to palpation in this area. -CT of the abdomen was done without contrast so it is difficult to tell if the underlying induration as a hematoma or an abscess. #2 Fluid overload: -likely from Fluids given during recent hospitalization. Patient received 40 mg of Lasix IV yesterday. She is -2 L since admission. -Patient received another 40 mg of Lasix IV today. -BUN and creatinine are within normal limits. -Patient did get an echo and results are pending. -Lower extremity Doppler was negative. #3. Bacteremia: -blood cultures came back positive for gram-positive cocci in clusters. -She will continue on vancomycin and Zosyn. Disposition: One to 2 days pending improvement.
--- NOTE | 2017-02-20 15:49 | US ---
EXAM DATE: 02/19/17 PATIENT'S AGE: 41 Patient: SALLY VILLA Facility: [place], [place] Site Site : 1975 Study: US Extremity Bilateral [id number]/25/2017 10:28:28 PM Ordering Physician: ANASTACIO Final Report: INDICATION: Bilateral lower extremity edema. History of hernia surgery 6 days ago. TECHNIQUE: Ultrasound venous duplex lower extremity bilateral. Compression venous exam was performed using pham-scale, color Doppler, and spectral Doppler imaging. COMPARISON: None FINDINGS: Sonographic imaging demonstrates the common femoral, deep femoral, superficial femoral, popliteal, posterior tibial and greater saphenous veins to be fully compressible with normal color Doppler blood flow in both lower extremities. IMPRESSION: Normal bilateral lower extremity venous ultrasound, no sign of deep venous thrombosis. Dictated by Glory Aguilar MD @ 02/19/2017 10:40:24 PM Dictated by: Glory Aguilar MD @ 02/19/2017 22:40:35 (Electronic Signature) Report Signed by Proxy and Original Signed Document filed in the Medical Record. MTDD
--- NOTE | 2017-02-20 16:03 | CR ---
EXAM DATE: 02/19/17 PATIENT'S AGE: 41 Patient: SALLY VILLA Facility: [place], [place] Site . Site : 1975 Study: XRay Chest [id number]/26/2017 1:20:49 AM Ordering Physician: Sierra Ordoñez Final Report: INDICATION: SOB TECHNIQUE: Chest 2 views COMPARISON: None FINDINGS: Cardiovascular and mediastinum: Heart size and vasculature are normal in caliber and appearance. Mediastinum is within normal limits. Lungs and pleural spaces: No focal consolidation. No sign of pleural effusion. No pneumothorax. Bones and soft tissues: No significant findings. IMPRESSION: No acute cardiopulmonary disease. Dictated by Rayshawn Ruiz MD @ 02/20/2017 1:31:58 AM Dictated by: Rayshawn Ruiz MD @ 02/20/2017 01:32:16 (Electronic Signature) Report Signed by Proxy and Original Signed Document filed in the Medical Record. [facility] SYSTEMEmiliana
[2017-02-20] MEDS ORDERED: Morphine 2 MG/ML Syringe IVPUSH ONE (17:25)
[2017-02-20] MEDS ORDERED: Lidocaine 2% 5 ML SDV ONE ×2 (17:34→21:54)
--- NOTE | 2017-02-20 18:00 | PCM.SN ---
- Free Text/Narrative Note: Anesthesia Consult for Difficult IV Access Pt states she is a known difficult IV stick and has previously required PICC and Central Lines for IV access. First attempt to L upper arm surface vein was unsuccessful. Ultrasound used and deep median upper arm vein visualized per ultrasound - 20 ga IV placed and secured. Good blood return and flushes easily. Did instruct pt to be very gentle with arm, as it is a deep vein and the catheter could become easily dislodged with extensive movement. Pt verbalizes understanding. Pt's nurse notified that she can now give IV pain medication.
[2017-02-20] MEDS: traZODone 50 MG Tab PO SCH (22:30)
--- NOTE | 2017-02-20 22:34 | PCM.SN ---
- Free Text/Narrative Note: Anesthesia Consult for Difficult IV Access Last IV placed approximately 4 hours ago has become dislodged and pt had NS infiltrate to upper arm. IV has been removed. Initially attempt superficial placement, but vein immediately disappears upon stick. Ultrasound once again used to identify upper arm median vein above the level of infiltration. 1mL of 2 % Lidocaine was injected, then placement of 1.88 inch 20Ga IV catheter under ultrasound guidance - unable to thread the last 1/4 inch, but flushes well - secured at site with tape and once again educate patient on the importance of limiting movement with that arm. Pt verbalizes that she had a gastric bypass and as a result has lots of extra loose skin which unfortunately makes it easier for these deep IVs to displace. Care turned over to nursing staff.
[2017-02-21] MEDS: Piperacillin/Tazobactam 3.375 GM in Sodium Chloride 0.9% 50 ML IV SCH ×2 (01:01→10:11)
[2017-02-21] MEDS: oxyCODONE 5 MG Tab PO PRN ×2 (01:10→05:44)
[2017-02-21 06:15] LABS: CHLORIDE,CL 101 mmol/L (98-110); SODIUM,NA 140 mmol/L (136-146)
[2017-02-21 08:14] VITALS: BP 103/51
--- NOTE | 2017-02-21 09:22 | PCM.DCSUM1 ---
<Easton Riley - Last Filed: 02/21/17 09:16> Discharge Summary - Hospital Course Free Text/Narrative:: Admission diagnoses: #1. Postoperative cellulitis and edema of the abdomen. Discharge diagnoses: #1. Postoperative cellulitis and edema of the abdomen, improving. #2. Bacteremia with gram-positive cocci in clusters. 41-year-old female that was admitted with postoperative abdominal cellulitis and edema. 6 days ago the patient underwent resitement of her colostomy to the right lower portion of her abdomen. She began to develop erythema, an area of induration at the right lower quadrant and and severe edema in her abdomen and legs. Patient diuresed 2.3 L while admitted with IV doses of Lasix. Her edema significantly improved with this. She was started on broad-spectrum antibiotics including vancomycin and Zosyn with resolution of the right lower quadrant erythema. Her white blood cell count was normal during admission. She did have a temperature of 101.8 that responded to Tylenol. Blood cultures showed gram- positive cocci in clusters. She was continued on broad-spectrum antibiotics. Dr. Oconnor from general surgery was consulted and did follow the patient during hospitalization. She did not think that the patient needed to go emergently to the operating room and suggested that she followup with the surgeon, Dr. Joseph, that did her resitement surgery in [place], [place]. Abdomen/ pelvis CT showed trace pneumoperitoneum and a subcutaneous fluid collection at the right anterior portion of the abdomen. Hematoma versus abscess was suggested but abscess cannot be ruled out as the CT was done without contrast. There is also wall thickening of the area of the colon where the colostomy is placed. At the time of discharge, the patient denied any abdominal pain, nausea , vomiting, shortness of breath, wheezing, cough. She was tolerating oral intake. - Discharge Data Discharge Date: 02/21/17 Discharge Disposition: Home, Self-Care 01 Condition: Good - Discharge Diagnosis/Problem(s) (1) Cellulitis SNOMED Code(s): 084383779 ICD Code: L03.90 - CELLULITIS, UNSPECIFIED Status: Acute Qualifiers: Site of cellulitis: trunk Site of cellulitis of trunk: abdominal wall Qualified Code(s): L03.311 - Cellulitis of abdominal wall (2) Postoperative edema SNOMED Code(s): 842815860 ICD Code: R60.9 - EDEMA, UNSPECIFIED Status: Acute (3) Bacteremia SNOMED Code(s): 9505574 ICD Code: R78.81 - BACTEREMIA Status: Acute - Patient Instructions Diet: Usual Diet as Tolerated Activity: As Tolerated Driving: May Drive Today Showering/Bathing: May Shower Notify Provider of: Fever, Increased Pain, Nausea and/or Vomiting Other/Special Instructions: patient needs f/u with Dr. Jones Verdin - Discharge Plan Prescriptions/Med Rec: Furosemide [Lasix] 20 mg PO DAILY #3 tablet Potassium Chloride 20 meq PO DAILY #3 tab Sulfamethoxazole/Trimethoprim [Bactrim Ds Tablet] 1 each PO BID #20 tablet oxyCODONE HCl/Acetaminophen [Percocet 5-325 mg Tablet] 1 each PO Q6H PRN #8 tablet PRN Reason: Pain traZODone HCl [Trazodone HCl] 150 mg PO BEDTIME #30 tablet Home Medications: Home Meds Hydrocodone/Acetaminophen [Bud 10-325 Tablet] 1 tab PO Q6HR PRN 02/19/17 [ History] Furosemide [Lasix] 20 mg PO DAILY #3 tablet 02/20/17 [Rx] Potassium Chloride 20 meq PO DAILY #3 tab 02/20/17 [Rx] Sulfamethoxazole/Trimethoprim [Bactrim Ds Tablet] 1 each PO BID #20 tablet 02/20 [Rx] oxyCODONE HCl/Acetaminophen [Percocet 5-325 mg Tablet] 1 each PO Q6H PRN #8 tablet 02/21/17 [Rx] traZODone HCl [Trazodone HCl] 150 mg PO BEDTIME #30 tablet 02/21/17 [Rx] Patient Handouts: Furosemide tablets, Trazodone tablets, Cellulitis, Adult, Potassium Salts tablets, extended-release tablets or capsules, Acetaminophen; Oxycodone capsules, Sulfamethoxazole; Trimethoprim, SMX-TMP tablets Referrals: [facility] [Outside] Mayank Joseph MD [Ordering Only Provider] - 02/22/17 9:30 am Jones Verdin MD [Physician] - 03/04/17 11:00 am - Discharge Summary/Plan Comment DC Time >30 min.: No Discharge Summary/Plan Comment: Admission diagnoses: #1. Postoperative cellulitis and edema of the abdomen. Discharge diagnoses: #1. Postoperative cellulitis and edema of the abdomen, improving. #2. Bacteremia with gram-positive cocci in clusters. 41-year-old female that was admitted with postoperative abdominal cellulitis and edema. 6 days ago the patient underwent resitement of her colostomy to the right lower portion of her abdomen. She began to develop erythema, an area of induration at the right lower quadrant and and severe edema in her abdomen and legs. Patient diuresed 2.3 L while admitted with IV doses of Lasix. Her edema significantly improved with this. An echocardiogram was ordered and results are pending. She was started on broad-spectrum antibiotics including vancomycin and Zosyn with resolution of the right lower quadrant erythema. Her white blood cell count was normal during admission. She did have a temperature of 101.8 that responded to Tylenol. Blood cultures showed gram-positive cocci in clusters. She was continued on broad-spectrum antibiotics. Dr. Oconnor from general surgery was consulted and did follow the patient during hospitalization. She did not think that the patient needed to go emergently to the operating room and suggested that she followup with the surgeon, Dr. Joseph, that did her resitement surgery in [place], [place]. Abdomen/ pelvis CT showed trace pneumoperitoneum and a subcutaneous fluid collection at the right anterior portion of the abdomen. Hematoma versus abscess was suggested but abscess cannot be ruled out as the CT was done without contrast. There is also wall thickening of the area of the colon where the colostomy is placed. At the time of discharge, the patient denied any abdominal pain, nausea , vomiting, shortness of breath, wheezing, cough. She was tolerating oral intake. Discharge plan: #1. Patient does have a followup appointment with Dr. Joseph on February 22, 2017 in [place], [place]. #2. Patient does have a followup appointment with her PCP, Dr. Verdin, on February 28 at 10:30 AM. At that time she can discuss her echo results, as they're pending, with Dr. Verdin. #3. At discharge, the patient was prescribed: -Lasix 20 mg daily -potassium chloride 20 mEq daily -Bactrim double strength with one tab being taken twice a day for 10 days -Percocet 5/3 and 25 mg tablets with one tab being taken every 6 hours as needed for pain, 8 tabs, zero refills. - Patient Data Vitals - Most Recent: Last Vital Signs Temp 99.6 F 02/21/17 08:00 Pulse 100 02/21/17 08:00 Resp 20 02/21/17 08:00 BP 103/51 L 02/21/17 08:00 Pulse Ox 92 L 02/21/17 08:00 Weight - Most Recent: 95.8 kg I&O - Last 24 hours: Intake & Output 02/20/17 02/21/17 02/21/17 22:59 06:59 14:59 Intake Total 1694 3200 Output Total 3950 1325 Balance -2256 1875 Lab Results - Last 24 hrs: Laboratory Results - last 24 hr 02/20/17 02/21/17 02/21/17 Range/Units 12:07 05:33 05:33 WBC 10.48 10.67 (4.0-11.0) K/uL RBC 3.09 L 2.86 L (4.30-5.90) M/uL Hgb 9.0 L 8.4 L (12.0-16.0) g/dL Hct 28.5 L 26.6 L (36.0-46.0) % MCV 92.2 93.0 (80.0-98.0) fL MCH 29.1 29.4 (27.0-32.0) pg MCHC 31.6 31.6 (31.0-37.0) g/dL RDW Std Deviation 56.0 57.4 (28.0-62.0) fl RDW Coeff of Ankit 17 H 17 H (11.0-15.0) % Plt Count 635 H 598 H (150-400) K/uL MPV 9.40 9.20 (7.40-12.00) fL Add Manual Diff YES YES Neutrophils % (Manual) 82 H 76 (48.0-80.0) % Band Neutrophils % 4 % Lymphocytes % (Manual) 10 L 16 (16.0-40.0) % Monocytes % (Manual) 4 5 (0.0-15.0) % Metamyelocytes % 3 % Nucleated RBC % 0.0 0.0 /100WBC Absolute Seg Neuts 8.6 8.1 Band Neutrophils # 0.4 Lymphocytes # (Manual) 1.0 1.7 Monocytes # (Manual) 0.4 0.5 Absolute Metamyelocyte 0.3 Nucleated RBCs # 0 0 K/uL Sodium 140 (136-146) mmol/L Potassium 3.7 (3.5-5.1) mmol/L Chloride 101 (98-110) mmol/L Carbon Dioxide 28 (21-31) mmol/L BUN 3 L (6.0-23.0) mg/dL Creatinine 0.6 (0.6-1.5) mg/dL Est Cr Clr Drug Dosing 107.63 mL/min Estimated GFR (MDRD) > 60.0 ml/min Glucose 77 (60-110) mg/dL Calcium 7.7 L (8.8-10.8) mg/dL Med Orders - Current: Current Medications Piperacillin Sod/Tazobactam (Sod 3.375 gm/ Sodium Chloride) 50 mls @ 100 mls/ hr IV Q6H [facility] Last Admin: 02/21/17 01:01 Dose: Not Given Vancomycin HCl 1.5 gm/ Sodium (Chloride) 500 mls @ 333.333 mls/hr IV Q12H [facility] Last Admin: 02/20/17 22:30 Dose: 333.333 mls/hr Morphine Sulfate (Morphine) 2 mg IVPUSH Q3H PRN PRN Reason: Pain (severe 7-10) Last Admin: 02/20/17 22:41 Dose: 2 mg Oxycodone HCl (Oxycodone) 10 mg PO Q4H PRN PRN Reason: Pain (moderate 4-6) Last Admin: 02/21/17 05:44 Dose: 10 mg Sodium Chloride (Saline Flush) 10 ml FLUSH ASDIRECTED PRN PRN Reason: Keep Vein Open Sodium Chloride (Saline Flush) 2.5 ml FLUSH ASDIRECTED PRN PRN Reason: Keep Vein Open Trazodone HCl (Trazodone) 150 mg PO BEDTIME [facility] Last Admin: 02/20/17 22:30 Dose: 150 mg Vancomycin HCl (Pharmacy To Dose - Vancomycin) 1 dose .XX ASDIRECTED [facility] Discontinued Medications Hydrocodone Bitart/Acetaminophen (Bud 325-10 Mg) 1 tab PO ONETIME ONE Stop: 02/19/17 16:34 Last Admin: 02/19/17 18:25 Dose: 1 tab Furosemide (Lasix) 40 mg IVPUSH NOW ONE Stop: 02/19/17 19:44 Last Admin: 02/19/17 20:55 Dose: 40 mg Furosemide (Lasix) 40 mg IVPUSH NOW ONE Stop: 02/20/17 10:46 Last Admin: 02/20/17 10:43 Dose: 40 mg Vancomycin HCl 1 gm/ Sodium (Chloride) 250 mls @ 250 mls/hr IV ONETIME ONE Stop: 02/19/17 17:31 Last Admin: 02/19/17 18:28 Dose: 250 mls/hr Vancomycin HCl 500 mg/ Sodium (Chloride) 100 mls @ 100 mls/hr IV ONETIME ONE Stop: 02/19/17 21:59 Vancomycin HCl 500 mg/ Sodium (Chloride) 100 mls @ 100 mls/hr IV ONETIME ONE Stop: 02/19/17 21:59 Last Admin: 02/19/17 20:52 Dose: 100 mls/hr Lidocaine (Xylocaine-Mpf 2%) Confirm Administered Dose 5 ml .ROUTE .STK-MED ONE Stop: 02/20/17 17:35 Last Admin: 02/20/17 20:23 Dose: Not Given Lidocaine (Xylocaine-Mpf 2%) Confirm Administered Dose 5 ml .ROUTE .STK-MED ONE Stop: 02/20/17 21:55 Last Admin: 02/21/17 00:45 Dose: Not Given Morphine Sulfate (Morphine) 2 mg IVPUSH ONETIME ONE Stop: 02/20/17 17:26 Last Admin: 02/20/17 17:51 Dose: 2 mg Oxycodone HCl (Oxycodone) 5 mg PO Q4H PRN PRN Reason: Pain (moderate 4-6) Last Admin: 02/20/17 16:27 Dose: 5 mg Potassium Chloride (Klor-Con M20) 60 meq PO ONETIME ONE Stop: 02/19/17 20:03 Last Admin: 02/19/17 20:56 Dose: 60 meq *Q Meaningful Use (DIS) - VTE *Q VTE Criteria *Q: - Stroke *Q Stroke Criteria *Q: - AMI *Q AMI Criteria *Q: <Zeke Oleary - Last Filed: 02/22/17 15:47> Discharge Summary - Hospital Course HPI Initial Comments: I was present with the resident during history and examination. I discussed the case with the resident and agree with the findings and plan as documented in the residents note. - Patient Data Vitals - Most Recent: Last Vital Signs Temp 37.6 C 02/21/17 08:00 Pulse 100 02/21/17 08:00 Resp 20 02/21/17 08:00 BP 103/51 L 02/21/17 08:00 Pulse Ox 92 L 02/21/17 08:00 Med Orders - Current: Current Medications Discontinued Medications Hydrocodone Bitart/Acetaminophen (Bud 325-10 Mg) 1 tab PO ONETIME ONE Stop: 02/19/17 16:34 Last Admin: 02/19/17 18:25 Dose: 1 tab Furosemide (Lasix) 40 mg IVPUSH NOW ONE Stop: 02/19/17 19:44 Last Admin: 02/19/17 20:55 Dose: 40 mg Furosemide (Lasix) 40 mg IVPUSH NOW ONE Stop: 02/20/17 10:46 Last Admin: 02/20/17 10:43 Dose: 40 mg Vancomycin HCl 1 gm/ Sodium (Chloride) 250 mls @ 250 mls/hr IV ONETIME ONE Stop: 02/19/17 17:31 Last Admin: 02/19/17 18:28 Dose: 250 mls/hr Piperacillin Sod/Tazobactam (Sod 3.375 gm/ Sodium Chloride) 50 mls @ 100 mls/ hr IV Q6H [facility] Last Admin: 02/21/17 10:11 Dose: Not Given Vancomycin HCl 500 mg/ Sodium (Chloride) 100 mls @ 100 mls/hr IV ONETIME ONE Stop: 02/19/17 21:59 Vancomycin HCl 1.5 gm/ Sodium (Chloride) 500 mls @ 333.333 mls/hr IV Q12H [facility] Last Admin: 02/21/17 10:11 Dose: Not Given Vancomycin HCl 500 mg/ Sodium (Chloride) 100 mls @ 100 mls/hr IV ONETIME ONE Stop: 02/19/17 21:59 Last Admin: 02/19/17 20:52 Dose: 100 mls/hr Lidocaine (Xylocaine-Mpf 2%) Confirm Administered Dose 5 ml .ROUTE .STK-MED ONE Stop: 02/20/17 17:35 Last Admin: 02/20/17 20:23 Dose: Not Given Lidocaine (Xylocaine-Mpf 2%) Confirm Administered Dose 5 ml .ROUTE .STK-MED ONE Stop: 02/20/17 21:55 Last Admin: 02/21/17 00:45 Dose: Not Given Morphine Sulfate (Morphine) 2 mg IVPUSH Q3H PRN PRN Reason: Pain (severe 7-10) Last Admin: 02/20/17 22:41 Dose: 2 mg Morphine Sulfate (Morphine) 2 mg IVPUSH ONETIME ONE Stop: 02/20/17 17:26 Last Admin: 02/20/17 17:51 Dose: 2 mg Oxycodone HCl (Oxycodone) 5 mg PO Q4H PRN PRN Reason: Pain (moderate 4-6) Last Admin: 02/20/17 16:27 Dose: 5 mg Oxycodone HCl (Oxycodone) 10 mg PO Q4H PRN PRN Reason: Pain (moderate 4-6) Last Admin: 02/21/17 05:44 Dose: 10 mg Potassium Chloride (Klor-Con M20) 60 meq PO ONETIME ONE Stop: 02/19/17 20:03 Last Admin: 02/19/17 20:56 Dose: 60 meq Sodium Chloride (Saline Flush) 10 ml FLUSH ASDIRECTED PRN PRN Reason: Keep Vein Open Sodium Chloride (Saline Flush) 2.5 ml FLUSH ASDIRECTED PRN PRN Reason: Keep Vein Open Trazodone HCl (Trazodone) 150 mg PO BEDTIME [facility] Last Admin: 02/20/17 22:30 Dose: 150 mg Vancomycin HCl (Pharmacy To Dose - Vancomycin) 1 dose .XX ASDIRECTED [facility] *Q Meaningful Use (DIS) - VTE *Q VTE Criteria *Q: - Stroke *Q Stroke Criteria *Q: - AMI *Q AMI Criteria *Q:
[2017-02-21] MEDS: Vancomycin 1.5 GM in Sodium Chloride 0.9% 500 ML IV SCH (10:11)
--- NOTE | 2017-02-26 17:02 | ECHO ---
The echocardiogram report can be seen in this patient's EMR in the Reports section. KODY
== END 2017-02-21 10:45 | disposition home or self-care (01) ==
LOC: MW.ED 14:29 → UNDOADMOB 19:29 → MW.MS 19:29
PROVIDERS: ADMIT Internal Medicine; ATTEND Internal Medicine
DX: L76.82 Other postprocedural complications of skin and subcutaneous tissue (principal); L03.311 Cellulitis of abdominal wall; R60.9 Edema, unspecified; R78.81 Bacteremia; Z98.890 Other specified postprocedural states; Z93.3 Colostomy status; Z98.84 Bariatric surgery status; Z90.49 Acquired absence of other specified parts of digestive tract; E87.70 Fluid overload, unspecified
CPT/HCPCS: 36415; 71020; 74176; 80048; 80053; 81001; 83605; 83880; 84484; 85025; 87040; 93005; 93306; 93970; 96365; 96366; 96367; 96375; 96376; 99285; A9270; G0378; J1940; J2270; J2543; J3370; J7030; J7040; J7050; 36410; 99284

== ENCOUNTER 2017-03-02 16:12 | Emergency (ER) | payer BC, MEDICARE ==
[2017-03-02] MEDS ORDERED: Sodium Chloride 0.9% 2.5 ML Syringe FLUSH PRN (18:28)
[2017-03-02] MEDS ORDERED: Sodium Chloride 0.9% 10 ML Syringe FLUSH PRN (18:28)
[2017-03-02 19:04] LABS: CHLORIDE,CL 104 mmol/L (98-110); SODIUM,NA 139 mmol/L (136-146)
[2017-03-02] MEDS ORDERED: Iopamidol 755 Mg/ML 100 ML Bottle IVPUSH STA (19:43)
[2017-03-02] MEDS ORDERED: Ondansetron 4 MG/2 ML SDV IVPUSH ONE (19:57)
[2017-03-02] MEDS ORDERED: Morphine 10 MG/ML Syringe IV ONE (19:57)
--- NOTE | 2017-03-02 19:57 | EDM.PDOC ---
ED HPI GI/ABDOMINAL - General Chief Complaint: Gastrointestinal Problem Stated Complaint: PT HAS COMPLICATIONS FROM SURGERY Time Seen by Provider: 03/02/17 17:55 Source of Information: Reports: Patient, Old records History Limitations: Reports: No limitations - History of Present Illness INITIAL COMMENTS - FREE TEXT/NARRATIVE: HISTORY AND PHYSICAL: [41-year-old female presenting with abdominal pain this is the third time in 2 weeks she has been in our emergency] History of Present Illness: [Significant history with this patient she has history of Crohn's disease Gastric bypass surgery 2008/ colostomy in 2009 recent revision 02/13][address] Davis in [place], [place] Cholecystectomy Patient complains of pain to entire abdomen and is concerned there has infection or abscess opinion site of the colostomy Review of Systems: As per history of present illness and below otherwise all systems reviewed and negative. Past medical history: As per history of present illness and as reviewed below otherwise noncontributory. Surgical history: As per history of present illness and as reviewed below otherwise noncontributory. Social history: No reported history of drug or alcohol abuse. Family history: As per history of present illness and as reviewed below otherwise noncontributory. 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 Complains of pain being 8/10. HEENT: Atraumatic, normocehpalic, pupils reactive, negative for conjunctival pallor or scleral icterus, mucous membranes moist, throat clear, neck supple, nontender, trachea midline. Lungs: Clear to auscultation, breath sounds equal bilaterally, chest non tender. Heart: S1S2, regular, negative for clicks, rubs, or JVD. Abdomen: Soft, nondistended, generalized tenderness with palpation, no rebound and no guarding. Negative for masses or hepatossplenmegaly. Negative for costovertebral tenderness. Colostomy with light brown liquidy material Pelvis: Stable nontender. Genitourinary: Deferred. Rectal: Deferred Extremities: Atraumatic, negative for cords or calf pain. Neurovascular unremarkable. Neuro: Awake, alert, oriented. Cranial nerves II through XII unremarkable. Cerebellum unremarkable. Motor and sensory unremarkable throughout. Exam nonfocal. Discussed with patient and her the diagnosis of abdominal pain being a small bowel obstruction they are adamant in not wanting to go back to [place] for follow up cares. Per family request will call to [facility]. Call was made to [facility] I did speak with their surgeon monorail charger operator Dr. Charli Faulkner. He has accepted this patient for direct admission. CD of abdominal and pelvis CAT scan will be given to the patient along with hospital records. Diagnostics: [CBC CMP abdominal and pelvic CT] Therapeutics: [Morphine IV dilauid IV Impression: [] Small bowel obstruction Plan: [Transfer patient going to [facility] Hospital A shunt and has had a refusing ambulance transportation and will travel per Private Vehicle Instructed patient not to eat or drink anything. Patient and both verbalize understanding of risks and concerns about taking Pvt. vehicle and he departure against medical advice forms have been completed] Definitive disposition and diagnosis as appropriate pending reevaluation and review of above. Timing/Duration: Reports: Day(s):, Gradual onset Location: generalized Quality: Reports: cramping, fullness Severity: moderate Context: Reports: recent surgery - Related Data Allergies/ADRs: Allergies Allergy/AdvReac Type Severity Reaction Status Date / Time No Known Allergies Allergy Verified 03/02/17 17:45 Home Meds: Home Meds Hydrocodone/Acetaminophen [[place] 10-325 Tablet] 1 tab PO Q6HR PRN 02/19/17 [ History] traZODone HCl [Trazodone HCl] 150 mg PO BEDTIME #30 tablet 02/21/17 [Rx] Ciprofloxacin HCl [Cipro] 500 mg PO BID 03/02/17 [History] metroNIDAZOLE [Flagyl] 500 mg PO Q8H 03/02/17 [History] Past Medical History - Past Health History Medical/Surgical History: Denies Medical/Surgical History HEENT History: Reports: None Cardiovascular History: Reports: None Respiratory History: Reports: None Gastrointestinal History: Reports: Other (see below) Other Gastrointestinal History: Crohn's dse Genitourinary History: Reports: None [employer]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: Musculoskeletal History: Reports: None Neurological History: Reports: None Psychiatric History: Reports: Depression Endocrine/Metabolic History: Reports: None Hematologic History: Reports: None Immunologic History: Reports: None Oncologic (Cancer) History: Reports: None Dermatologic History: Reports: None - Infectious Disease History Infectious Disease History: Reports: Chicken pox - Past Surgical History Head Surgeries/Procedures: Reports: None GI Surgical History: Reports: Cholecystectomy Other GI Surgeries/Procedures: Colostomy; Gastric bypass; Hernai repair x 3 Female Surgical History: Reports: section Other Female Surgeries/Procedures: x 2 Social & Family History - Family History Family Medical History: Noncontributory - Tobacco Use Smoking Status *Q: Never Smoker Second Hand Smoke Exposure: No - Caffeine Use Caffeine Use: Reports: None Caffeine Use Comment: 8drinks/day - Alcohol Use Days Per Week of Alcohol Use: 7 Number of Drinks Per Day: 5 Total Drinks Per Week: 35 - Recreational Drug Use Recreational Drug Use: No ED ROS GENERAL - Review of Systems Review Of Systems: ROS reveals no pertinent complaints other than HPI. ED EXAM, GI/ABD - Physical Exam Exam: See Below (see dictation) Course - Vital Signs Last Recorded V/S: Last Vital Signs Temp 36.9 C 03/02/17 21:54 Pulse 102 H 03/02/17 21:54 Resp 19 03/02/17 21:54 BP 136/78 03/02/17 21:54 Pulse Ox 98 03/02/17 21:54 - Orders/Labs/Meds Orders: Active Orders 24 hr Category Date Time Status Abdomen Pelvis w Cont [CT] Stat Exams 03/02/17 18:29 Taken Sodium Chloride 0.9% [Saline Flush] Med 03/02/17 18:28 Active 10 ml FLUSH ASDIRECTED PRN Sodium Chloride 0.9% [Saline Flush] Med 03/02/17 18:28 Active 2.5 ml FLUSH ASDIRECTED PRN Saline Lock Insert [OM.PC] Stat Oth 03/02/17 18:28 Ordered Medication Orders Sodium Chloride (Saline Flush) 10 ml FLUSH ASDIRECTED PRN PRN Reason: Keep Vein Open Sodium Chloride (Saline Flush) 2.5 ml FLUSH ASDIRECTED PRN PRN Reason: Keep Vein Open Labs: Laboratory Tests 03/02/17 03/02/17 03/02/17 Range/Units 18:30 18:30 18:30 WBC 10.06 (4.0-11.0) K/uL RBC 2.51 L (4.30-5.90) M/uL Hgb 7.3 L (12.0-16.0) g/dL Hct 23.1 L (36.0-46.0) % MCV 92.0 (80.0-98.0) fL MCH 29.1 (27.0-32.0) pg MCHC 31.6 (31.0-37.0) g/dL RDW Std Deviation 56.3 (28.0-62.0) fl RDW Coeff of Ankit 17 H (11.0-15.0) % Plt Count 793 H (150-400) K/uL MPV 8.60 (7.40-12.00) fL Neut % (Auto) 84.2 H (48.0-80.0) % Lymph % (Auto) 7.1 L (16.0-40.0) % [place] % (Auto) 6.6 (0.0-15.0) % Eos % (Auto) 1.8 (0.0-7.0) % Baso % (Auto) 0.3 (0.0-1.5) % Neut # (Auto) 8.5 H (1.4-5.7) K/uL Lymph # (Auto) 0.7 (0.6-2.4) K/uL [place] # (Auto) 0.7 (0.0-0.8) K/uL Eos # (Auto) 0.2 (0.0-0.7) K/uL Baso # (Auto) 0.0 (0.0-0.1) K/uL Nucleated RBC % 0.0 /100WBC Nucleated RBCs # 0 K/uL Lactate 1.5 (0.20-2.00) mmol/L Sodium 139 (136-146) mmol/L Potassium 4.0 (3.5-5.1) mmol/L Chloride 104 (98-110) mmol/L Carbon Dioxide 24 (21-31) mmol/L BUN 9 (6.0-23.0) mg/dL Creatinine 0.7 (0.6-1.5) mg/dL Est Cr Clr Drug Dosing 92.25 mL/min Estimated GFR (MDRD) > 60.0 ml/min Glucose 120 H (60-110) mg/dL Calcium 9.1 (8.8-10.8) mg/dL Total Bilirubin 0.2 (0.1-1.5) mg/dL AST 12 (5-40) IU/L ALT 8 (8-54) IU/L Alkaline Phosphatase 105 (40-150) Total Protein 7.0 (6.0-8.0) g/dL Albumin 2.8 L (3.5-5.0) g/dL Globulin 4.2 H (2.0-3.5) g/dL Albumin/Globulin Ratio 0.7 L (1.3-2.8) Lipase 14 (7-80) U/L Meds: Medications Generic Name Dose Route Start Last Admin Trade Name Radha PRN Reason Stop Dose Admin Sodium Chloride 10 ml 03/02/17 18:28 Saline Flush FLUSH ASDIRECTED PRN Keep Vein Open Sodium Chloride 2.5 ml 03/02/17 18:28 Saline Flush FLUSH ASDIRECTED PRN Keep Vein Open Discontinued Medications Generic Name Dose Route Start Last Admin Trade Name Radha PRN Reason Stop Dose Admin Hydromorphone HCl 1 mg 03/02/17 21:07 03/02/17 21:13 Dilaudid IVPUSH 03/02/17 21:08 1 mg ONETIME ONE Administration Iopamidol 100 ml 03/02/17 19:43 03/02/17 19:44 Isovue-370 (76%) IVPUSH 03/02/17 19:44 100 ml ONETIME STA Administration Morphine Sulfate 2 mg 03/02/17 19:57 03/02/17 20:25 Morphine IV 03/02/17 19:58 2 mg ONETIME ONE Administration Ondansetron HCl 4 mg 03/02/17 19:57 03/02/17 20:23 Zofran IVPUSH 03/02/17 19:58 4 mg ONETIME ONE Administration Departure - Departure Time of Disposition: 21:58 Disposition: Against Medical Advice 07 Condition: fair Clinical Impression: Small bowel obstruction Forms: ED Department Discharge - My Orders Last 24 Hours: My Active Orders 03/02/17 18:28 Sodium Chloride 0.9% [Saline Flush] 10 ml FLUSH ASDIRECTED PRN Sodium Chloride 0.9% [Saline Flush] 2.5 ml FLUSH ASDIRECTED PRN Saline Lock Insert [OM.PC] Stat 03/02/17 18:29 Abdomen Pelvis w Cont [CT] Stat - Assessment/Plan Last 24 Hours: My Active Orders 03/02/17 18:28 Sodium Chloride 0.9% [Saline Flush] 10 ml FLUSH ASDIRECTED PRN Sodium Chloride 0.9% [Saline Flush] 2.5 ml FLUSH ASDIRECTED PRN Saline Lock Insert [OM.PC] Stat 03/02/17 18:29 Abdomen Pelvis w Cont [CT] Stat
[2017-03-02] MEDS ORDERED: HYDROmorphone 1 MG/ML Syringe IVPUSH ONE (21:07)
[2017-03-02 21:55] VITALS: BP 136/78
--- NOTE | 2017-03-04 17:26 | CT ---
EXAM DATE: 03/02/17 PATIENT'S AGE: 41 Patient: SALLY VILLA Facility: [place], [place] Site . Site : [id number] Study: CT Abdomen/Pelvis [id number] w cont-03/02/2017 7:40:03 PM Ordering Physician: Doctor Diego Final Report: INDICATION: Abdominal pain. History of a colostomy revision 02/13/2017. TECHNIQUE: Multiple axial images were obtained from the diaphragm to the symphysis pubis after administration 100 ml of Isovue-370 intravenously. Sagittal and coronal re -formatted images were obtained. COMPARISON: CT done 02/19/2017. FINDINGS: The visualized portion of the lung bases are clear. There is no focal liver lesion. The spleen, pancreas and adrenal glands are unremarkable. The gallbladder surgically absent. There is no mass or hydronephrosis in the kidneys. There are multiple dilated loops of small bowel with a transitional point in the left upper abdomen consistent with a small bowel obstruction. The patient is status post left hemicolectomy with a right lower quadrant colostomy. There is a moderate amount of stool in the ascending colon. There is stranding of fat I again noted in the patient`s ostomy consistent with the patient`s recent surgery. There is a subcutaneous fluid collection again noted in the right upper abdomen consistent with a seroma measuring 6.7 x 3.2 cm. This is similar to the previous CT scan. The abdominal aorta is normal in caliber. There is no adenopathy seen. There is no free fluid identified in the abdomen or pelvis. There is evidence of previous surgery on the stomach. IMPRESSION: Small bowel obstruction with transition point in left upper abdomen. Left hemicolectomy of the right lower quadrant ostomy. Stranding of the fat in the colostomy likely secondary to the patient`s recent surgery. Seroma again noted in the subcutaneous tissue in the right upper abdomen anteriorly. Dictated by Conor Talavera MD @ 03/02/2017 8:06:53 PM Dictated by: Conor Talavera MD @ 03/02/2017 20:07:03 (Electronic Signature) Report Signed by Proxy. KODY
== END 2017-03-02 22:10 ==
LOC: MW.ED 16:12
DX: K56.60 Unspecified intestinal obstruction (principal); K50.90 Crohn's disease, unspecified, without complications; F32.9 Major depressive disorder, single episode, unspecified; Z90.49 Acquired absence of other specified parts of digestive tract; Z98.890 Other specified postprocedural states; Z98.84 Bariatric surgery status
CPT/HCPCS: 36415; 74177; 80053; 83605; 83690; 85025; 96374; 96375; 99284; J1170; J2270; J2405; Q9967; 99285

== ENCOUNTER 2017-03-24 11:38 | Emergency (ER) | payer BC, MEDICARE ==
[2017-03-24] MEDS ORDERED: Ondansetron 4 MG/2 ML SDV IVPUSH ONE (11:54)
[2017-03-24] MEDS ORDERED: Sodium Chloride 0.9% 1,000 ML IV ONE (11:54)
[2017-03-24] MEDS ORDERED: Ketorolac 30 MG/ML SDV IVPUSH ONE (11:54)
--- NOTE | 2017-03-24 12:25 | EDM.PDOC ---
ED HPI GENERAL MEDICAL PROBLEM - General Chief Complaint: General Stated Complaint: SICK Time Seen by Provider: 03/24/17 12:00 Source of Information: Reports: Patient History Limitations: Reports: No Limitations - History of Present Illness INITIAL COMMENTS - FREE TEXT/NARRATIVE: History of present illness: [42-year-old female presenting with complaints of acute weakness, and malaise. Patient indicates she also has [place] drain in her right lower quadrant that has some newer discharge that has become foul this morning.] Review of systems: As per history of present illness and below otherwise all systems reviewed and negative. Past medical history: As per history of present illness and as reviewed below otherwise noncontributory. Surgical history: As per history of present illness and as reviewed below otherwise noncontributory. Social history: No reported history of drug or alcohol abuse. Family history: As per history of present illness and as reviewed below otherwise noncontributory. Physical exam: HEENT: Atraumatic, normocephalic, pupils reactive, negative for conjunctival pallor or scleral icterus, mucous membranes moist, throat clear, neck supple, nontender, trachea midline. Lungs: Clear to auscultation, breath sounds equal bilaterally, chest nontender. Heart: S1S2, regular, negative for clicks, rubs, or JVD. Abdomen: Soft, nondistended, nontender. Negative for masses or hepatosplenomegaly. Negative for costovertebral tenderness. Pelvis: Stable nontender. Genitourinary: Deferred. Rectal: Deferred. Extremities: Atraumatic, negative for cords or calf pain. Neurovascular unremarkable. Neuro: Awake, alert, oriented. Cranial nerves II through XII unremarkable. Cerebellum unremarkable. Motor and sensory unremarkable throughout. Exam nonfocal. Diagnostics: [CBC, CMP, UA, culture of [place] drain] Therapeutics: [] Impression: [Generalized weakness] Plan: [Followup with PCP and/or surgeon Bactrim and Flagyl Rx] Definitive disposition and diagnosis as appropriate pending reevaluation and review of above. Abdominal Pain Score (Numeric/FACES): 8 - Related Data Allergies Allergy/AdvReac Type Severity Reaction Status Date / Time No Known Allergies Allergy Verified 03/24/17 11:49 Home Meds: Home Meds traZODone HCl [Trazodone HCl] 150 mg PO BEDTIME #30 tablet 02/21/17 [Rx] Sulfamethoxazole/Trimethoprim [Bactrim Ds Tablet] 1 each PO BID #20 tablet 03/24 [Rx] metroNIDAZOLE [Metronidazole] 500 mg PO BID #20 tablet 03/24/17 [Rx] oxyCODONE HCl/Acetaminophen [oxyCODONE-Acetaminophen 5-325] 1 tab PO Q4H PRN [History] Past Medical History - Past Health History Medical/Surgical History: Denies Medical/Surgical History HEENT History: Reports: None Cardiovascular History: Reports: None Respiratory History: Reports: Asthma Gastrointestinal History: Reports: Other (See Below) Other Gastrointestinal History: Crohn's disease-multiple surgeries Genitourinary History: Reports: None [employer] History: Reports: Musculoskeletal History: Reports: None Neurological History: Reports: None Psychiatric History: Reports: Depression Endocrine/Metabolic History: Reports: None Hematologic History: Reports: None Immunologic History: Reports: None Oncologic (Cancer) History: Reports: None Dermatologic History: Reports: None - Infectious Disease History Infectious Disease History: Reports: Chicken Pox - Past Surgical History Head Surgeries/Procedures: Reports: None Respiratory Surgical History: Reports: None GI Surgical History: Reports: None Female Surgical History: Reports: Section Social & Family History - Family History Family Medical History: Noncontributory - Tobacco Use Smoking Status *Q: Never Smoker Second Hand Smoke Exposure: No - Caffeine Use Caffeine Use: Reports: Soda Caffeine Use Comment: 8drinks/day - Alcohol Use Days Per Week of Alcohol Use: 7 Number of Drinks Per Day: 5 Total Drinks Per Week: 35 - Recreational Drug Use Recreational Drug Use: No ED ROS GENERAL - Review of Systems Review Of Systems: See Below (See history of present illness) ED EXAM, GENERAL - Physical Exam Exam: See Below (See history of present illness) Course - Vital Signs Last Recorded V/S: Last Vital Signs Temp 36.6 C 03/24/17 11:54 Pulse 89 03/24/17 11:54 Resp 16 03/24/17 11:54 BP 151/88 H 03/24/17 11:54 Pulse Ox 96 03/24/17 11:54 - Orders/Labs/Meds Orders: Active Orders 24 hr Category Date Time Status CBC WITH AUTO DIFF [HEME] Stat Lab 03/24/17 11:53 Ordered COMPREHENSIVE METABOLIC PN,CMP [CHEM] Stat Lab 03/24/17 11:54 Ordered Sodium Chloride 0.9% [Normal Saline] 1,000 ml Med 03/24/17 11:54 Ordered IV STAT Medication Orders Sodium Chloride (Normal Saline) 1,000 mls @ 999 mls/hr IV STAT ONE Stop: 03/24/17 12:54 Meds: Medications Generic Name Dose Route Start Last Admin Trade Name Freq PRN Reason Stop Dose Admin Sodium Chloride 1,000 mls @ 999 mls/hr 03/24/17 11:54 Normal Saline IV 03/24/17 12:54 STAT ONE Discontinued Medications Generic Name Dose Route Start Last Admin Trade Name Freq PRN Reason Stop Dose Admin Ketorolac Tromethamine 30 mg 03/24/17 11:54 Toradol IVPUSH 03/24/17 11:55 ONETIME ONE Ondansetron HCl 8 mg 03/24/17 11:54 Zofran IVPUSH 03/24/17 11:55 ONETIME ONE Departure - Departure Time of Disposition: 13:35 Disposition: Home, Self-Care 01 Condition: good Clinical Impression: Fatigue - Discharge Information Forms: ED Department Discharge Additional Instructions: The following information is given to patients seen in the emergency department who are being discharged to home. This information is to outline your options for follow-up care. We provide all patients seen in our emergency department with a follow-up referral. The need for follow-up, as well as the timing and circumstances, are variable depending upon the specifics of your emergency department visit. If you don't have a primary care physician on staff, we will provide you with a referral. We always advise you to contact your personal physician following an emergency department visit to inform them of the circumstance of the visit and for follow-up with them and/or the need for any referrals to a consulting specialist. The emergency department will also refer you to a specialist when appropriate. This referral assures that you have the opportunity for follow-up care with a specialist. All of these measure are taken in an effort to provide you with optimal care, which includes your follow-up. Under all circumstances we always encourage you to contact your private physician who remains a resource for coordinating your care. When calling for follow-up care, please make the office aware that this follow-up is from your recent emergency room visit. If for any reason you are refused follow-up, please contact the [facility] Emergency Department at and asked to speak to the emergency department charge nurse. Take medication as directed Call your physician in [place] to move your appointment up before that when you have scheduled 04/11 Return to ED as needed as discussed - My Orders Last 24 Hours: My Active Orders 03/24/17 11:53 CBC WITH AUTO DIFF [HEME] Stat 03/24/17 11:54 COMPREHENSIVE METABOLIC PN,CMP [CHEM] Stat Sodium Chloride 0.9% [Normal Saline] 1,000 ml IV STAT - Assessment/Plan Last 24 Hours: My Active Orders 03/24/17 11:53 CBC WITH AUTO DIFF [HEME] Stat 03/24/17 11:54 COMPREHENSIVE METABOLIC PN,CMP [CHEM] Stat Sodium Chloride 0.9% [Normal Saline] 1,000 ml IV STAT
[2017-03-24 12:35] LABS: CHLORIDE,CL 99 mmol/L (98-110); SODIUM,NA 136 mmol/L (136-146)
[2017-03-24 14:09] VITALS: BP 125/70
== END 2017-03-24 14:00 | disposition home or self-care (01) ==
LOC: MW.ED 11:38
DX: R53.83 Other fatigue (principal); F32.9 Major depressive disorder, single episode, unspecified; Z79.899 Other long term (current) drug therapy; Z98.890 Other specified postprocedural states
CPT/HCPCS: 36415; 80053; 81001; 85025; 87070; 96361; 96374; 96375; 99285; J1885; J2405; J7040; 87077; 87186; 99283